=== PATIENT | female | born 1940 | race Caucasian/White ===

== ENCOUNTER → 2016-10-08 | Outpatient (CLI) | payer OTHER ==
[~2016-10-08] MED LIST: CLTP PO; CLX20 PO; DIOVAN PO; HYDR0.5T PO; MULT-506 PO; NIFE60TA57 PO; ORUVAIL PO
--- NOTE | 2016-10-08 12:34 | MAMMOGRAPHY REPORT ---
BILATERAL DIGITAL SCREENING MAMMOGRAM TOMOSYNTHESIS WITH CAD: 10/08/2016 CLINICAL HISTORY: Routine screening. Patient has no complaints. TECHNIQUE: Breast tomosynthesis in addition to standard 2D mammography was performed. Current study was also evaluated with a Computer Aided Detection (CAD) system. COMPARISON: Comparison is made to exams dated: 09/20/2015 mammogram, 07/28/2014 mammogram, 07/27/2013 m ammogram, 07/26/2012 mammogram, 07/07/2011 mammogram, and 07/05/2010 mammogram - [facility]. BREAST COMPOSITION: There are scattered areas of fibroglandular density in both breasts. FINDINGS: No suspicious masses, calcifications, or areas of architectural distortion are noted in ei ther breast. There has been no significant interval change compared to prior exams. The technologist noted a palpable lump in the patient's right chest/breast, far superior in a region not included on the mammogram. The patient reported to the technologist that her doctor is aware and she has had other similar lumps removed elsewhere. IMPRESSION: ACR BI-RADS CATEGORY 1: NEGATIVE There is no mammographic evidence of malignancy. A 1 year screening mammogram is recommended. Also r ecommend clinical follow-up for the right breast/chest lump as discussed above; as this area is too s uperior to include on the mammogram, if the lump is new or clinically suspicious, ultrasound could be performed for further evaluation. The patient will receive written notification of the results. Approximately 10% of breast cancers are not detected with mammography. A negative mammographic report should not delay biopsy if a clinically suggestive mass is present. Cha White M.D. /:10/08/2016 12:17:15 Hvac Service Tech: Dalia Calderon RT(R)(M), [facility] letter sent: Normal /2 BI-RADS Code: ACR BI-RADS Category 1: Negative
== END | disposition home or self-care (01) ==
LOC: C.MAMM 10:59
PROVIDERS: ATTEND Obstetrics & Gynecology
DX: Z12.31 Encounter for screening mammogram for malignant neoplasm of breast (principal)

== ENCOUNTER 2022-10-21 08:15 | Inpatient (IN) ==
--- NOTE | 2022-10-01 14:05 | PAT Medication Instructions ---
Medication Instructions Date of Service October 01, 2022 Home Medications cetirizine 10 mg tablet 10 mg PO QPM cholecalciferol (vitamin D3) 25 mcg (1,000 unit) capsule 25 mcg PO QAM cyanocobalamin (vitamin B-12) 500 mcg tablet 500 mcg PO QAM diazepam 5 mg tablet 5 mg PO .TAKE 1 TABLET 4 TIMES DAILY NEEDED. PRN Anxiety diclofenac sodium 1 % topical gel 1 ea topical .Apply to affected area BID as directed. PRN Pain hydroxychloroquine 200 mg tablet 400 mg PO QAM lorazepam 1 mg tablet 1 mg PO HS naproxen sodium 220 mg tablet 220 mg PO .TAKE 1 TABLET EVERY 12 HOURS NEEDED. PRN Pain nifedipine 90 mg tablet,extended release 24 hr 90 mg PO QAM verapamil 180 mg 24 hr capsule,extended release 180 mg PO HS Eye Vitamin Areds 1 tab PO BID acetaminophen 325 mg tablet (Tylenol) 650 mg PO BID Continue as directed diclofenac sodium 1 % topical gel 1 ea topical .Apply to affected area BID as directed. PRN Pain (do not use on surgical area after bathing prior to surgery) ASK your surgeon for instructions naproxen sodium 220 mg tablet 220 mg PO .TAKE 1 TABLET EVERY 12 HOURS NEEDED. PRN Pain STOP taking 2 weeks before surgery Eye Vitamin Areds 1 tab PO BID DO NOT take the morning of surgery cholecalciferol (vitamin D3) 25 mcg (1,000 unit) capsule 25 mcg PO QAM cyanocobalamin (vitamin B-12) 500 mcg tablet 500 mcg PO QAM Take morning of surgery With a small sip of water, OTHERWISE NOTHING TO EAT OR DRINK AFTER MIDNIGHT: nifedipine 90 mg tablet,extended release 24 hr 90 mg PO QAM diazepam 5 mg tablet 5 mg PO .TAKE 1 TABLET 4 TIMES DAILY NEEDED. PRN Anxiety (if needed) acetaminophen 325 mg tablet (Tylenol) 650 mg PO BID (if needed) Take evening before surgery verapamil 180 mg 24 hr capsule,extended release 180 mg PO HS lorazepam 1 mg tablet 1 mg PO HS cetirizine 10 mg tablet 10 mg PO QPM diazepam 5 mg tablet 5 mg PO .TAKE 1 TABLET 4 TIMES DAILY NEEDED. PRN Anxiety (if needed) acetaminophen 325 mg tablet (Tylenol) 650 mg PO BID (if needed) Other Notes CHECK WITH PRESCRIBER FOR INSTRUCTIONS: hydroxychloroquine 200 mg tablet 400 mg PO QAM If you have any questions please call us at [phone] or [phone] or [phone] or [phone]
--- NOTE | 2022-10-06 10:54 | Anesthesiology Consultation ---
Date of Service October 06, 2022 Assessment & Plan (1) Encounter for pre-operative examination: - awaiting upcoming surgeon ordered medical clearance, Sonja Encinas. - anesthesia complications: post-op orthostatic hypotension. - PONV: pre-treatment plan to anesthesiologist discretion. Chart Review Chart Review: Pending: Refer to Additional Notes / Consult section and Patient seen in Pre Admission Testing Teaching & Discussion Pre-Anesthesia Teaching/Discussion Notes: Instructed NPO after midnight before surgery, except medications with 15 cc of water. Medication instructions provided according to the PAT guidelines. History Surgery Operation Date: 10/21/22 07:45 Proposed Procedures p L4-S1 Decompression and Fusion, Spinal Cord Monitoring - Abdi Kim, Height/Weight Height: 5 ft 5.5 in Weight: 57.9 kg Allergies Allergy/AdvReac Type Severity Reaction Status Date / Time Penicillins Allergy Intermediate HIVES Verified 10/01/22 09:23 Sulfa (Sulfonamide AdvReac Intermediate ACUTE Verified 10/01/22 09:23 Antibiotics) ARTHRITIC FLARE-UP Medications Home Medications Medication Instructions Recorded Confirmed Last Taken cetirizine 10 mg tablet 10 mg PO QPM 11/18/19 10/01/22 Unknown cholecalciferol (vitamin D3) 25 25 mcg PO QAM 11/18/19 10/01/22 Unknown mcg (1,000 unit) capsule cyanocobalamin (vitamin B-12) 500 500 mcg PO QAM 11/18/19 10/01/22 Unknown mcg tablet diazepam 5 mg tablet 5 mg PO .TAKE 1 TABLET 4 TIMES 11/18/19 10/01/22 Unknown DAILY NEEDED. PRN Anxiety diclofenac sodium 1 % topical gel 1 ea topical .Apply to affected 11/18/19 0 10/01/22 Unknown area BID as directed. PRN Pain hydroxychloroquine 200 mg tablet 400 mg PO QAM 11/18/19 10/01/22 Unknown lorazepam 1 mg tablet 1 mg PO HS 11/18/19 10/01/22 Unknown naproxen sodium 220 mg tablet 220 mg PO .TAKE 1 TABLET EVERY 12 11/18/19 10/01/22 Unknown HOURS NEEDED. PRN Pain nifedipine 90 mg tablet,extended 90 mg PO QAM 11/18/19 10/01/22 Unknown release 24 hr verapamil 180 mg 24 hr 180 mg PO HS 08/29/21 10/01/22 Unknown capsule,extended release Eye Vitamin Areds 1 tab PO BID 10/01/22 10/01/22 Unknown acetaminophen 325 mg tablet 650 mg PO BID 10/01/22 10/01/22 Unknown (Tylenol) Past Medical History Medical History (Updated 10/06/22 @ 11:01 by Jimena Singh PA-C) Cardiomegaly Chronic right SI joint pain GERD (gastroesophageal reflux disease) controlled, stable per pt History of blood transfusion with bilat knee replacements Hypertension controlled, stable per pt Lumbar spondylosis Lymphoma dx'd approx 7 years ago. [facility] [place]. Macular degeneration Osteopenia Rheumatoid arthritis Spinal stenosis Patient denies h/o stroke, seizures, heart attack, heart failure, DM, or blood clots. Exercise / Class Metabolic Activity II 4-5 Yardwork/Stairs/Walk up hill (denies chest discomfort or shortness of breath with 1 FOS) Past Family History Family History Mother Colorectal cancer Father COPD (chronic obstructive pulmonary disease) Hypertension Sister [id number] deficiency Lewy body dementia COPD (chronic obstructive pulmonary disease) Family/Other Diabetes, Onset Age: 17 granddaughter Other No family history of adverse response to anesthesia Denies family history of Ovarian cancer Breast cancer Past Surgical History Surgical History (Updated 10/06/22 @ 10:59 by Jimena Singh PA-C) H/O adenoidectomy H/O dilation and curettage H/O foot surgery L H/O lymph node excision [facility] [place], R arm H/O oral surgery permanent front upper bridge and multiple implants History of appendectomy History of carpal tunnel release bilateral History of cataract surgery History of left knee replacement History of nasal surgery History of right knee joint replacement Hx of colonoscopy Hx of tonsillectomy S/P rotator cuff repair R Past Anesthesia History No Hx of Anesthesia Complications and No Family Hx of Anesthesia Complications History of PONV History of PONV (denies receiving scop patch) and Hx of Motion Sickness Social History Smoking Status: Former smoker Do You Dip or Chew Tobacco: No Smoking End Date: "years ago" Hx Alcohol Use: Yes Alcohol type: wine alcohol intake frequency: 0-2 drinks per day Hx Substance Use: No substance use type: does not use Review of Systems Patient denies chest pain, shortness of breath, dyspnea on exertion, snoring, witnessed apneas, fever, chills, cough, wheezing, or palpitations. Physical Exam Vital Signs Vitals BP 149/87 P 93 TEMP 97.8 SP02 94% on RA RESP 17 Physical Full cervical extension range of motion without pain TMD 3.5 finger breadths Mallampati Score 2 Dentition: permanent upper front bridge and multiple implants; denies chipped or loose teeth, caps/crowns, implants or bridges Lungs: normal respiratory effort. Good air movement, clear throughout to auscultation, no adventitious breath sounds Cardiac: regular rate and rhythm, no murmurs noted Carotid arteries: negative bruit bilat Lab Results Anesthesia Preop Results Results Anesthesia Widget: 2 WBC 5.50 K/ul (4.8-10.8) 10/06/22 Hgb 13.5 g/dl (12.0-16.0) 10/06/22 Hct 39.8 % (37.0-47.0) 10/06/22 Plt 147 K/uL (130-400) 10/06/22 Na 138 mmol/L (136-145) 10/06/22 K 4.0 mmol/L (3.5-5.1) 10/06/22 Cl 101 mmol/L (98-107) 10/06/22 CO2 28 mmol/L (21-32) 10/06/22 BUN 23 mg/dl (6-23) 10/06/22 Creat 0.98 mg/dl (0.6-1.2) 10/06/22 Glucose Level 97 mg/dl (70-99(Fasting)) 10/06/22 PT 10.3 Seconds (9.0-12.0) 10/06/22 PTT 27.6 Seconds (21.0-31.0) 10/06/22 INR 0.9 (0.9-1.1) 10/06/22 Urine Color Yellow 10/06/22 Urine Appearance Clear (Clear) 10/06/22 Urine pH 7.5 (4.5-7.5) 10/06/22 Urine Specific [place] 1.018 (1.000-1.030) 10/06/22 Urine Protein 1+ (Negative) H 10/06/22 Urine Glucose (UA) Negative (Negative) 10/06/22 Urine Ketones Trace (Negative) H 10/06/22 Urine Blood Negative (Negative) 10/06/22 Urine Nitrite Negative (Negative) 10/06/22 Urine Bilirubin Negative (Negative) 10/06/22 Urine Urobilinogen Negative (Negative) 10/06/22 Urine Leukocyte Esterase 1+ (Negative) H 10/06/22 Urine WBC (Auto) 1-5 /hpf (0-5) 10/06/22 Urine RBC (Auto) 0-4 /hpf (0-4) 10/06/22 Urine Hyaline Casts (Auto) 1-5 /lpf (0-5) 10/06/22 Urine Epithelial Cells (Auto) >30 /lpf (0-5) H 10/06/22 Urine Bacteria (Auto) Negative (Negative) 10/06/22 Blood Type B Positive 10/06/22 Antibody Screen NEGATIVE 10/06/22 Testing Electrocardiogram Date: 10/06/22 NSR, rate 90 bpm Right atrial enlargement Moderate voltage criteria for LVH, may be normal variant Nonspecific ST abnormality Chest X-Ray Date: 10/06/22 No lines and tubes are seen. Calcified aortic knob is seen. The lungs are clear. No evidence of pleural effusion or pneumothorax. Degenerative changes in the spine. IMPRESSION: No acute chest disease. Cervical Spine Date: 10/06/22 Lateral, flexion, extension views of the cervical spine were submitted for review. The cervical spine is visualized from C1 through the superior endplate of T1. No fractures within the cervical spine. Prevertebral soft tissues and the C1-C2 interval are intact. Minimal disc space narrowing at C4-C5. Moderate to severe facet degenerative changes throughout the cervical spine. The C2-C3 facets appear fused. There is 1.7 mm of anterolisthesis of C3 on C4. This progresses to 2.4 mm on the flexion views. Stable 1.7 mm of anterolisthesis of C6 on C7 throughout flexion and extension. IMPRESSION: 1. The C1-C2 interval is intact throughout flexion and extension. 2. There is 1.7 mm of anterolisthesis of C3 on C4. This progresses to 2.4 mm on the flexion views. COVID-19 Risk Screen Screening Information COVID-19 Screen Date: 10/06/22 Exposure 21 Days Family/Household +COVID Last 21 Days: No Exposure 10 Days Any COVID Exposure Last 10 Days: No Symptoms Last 10 Days Experienced COVID Sx Last 10 Days: No + COVID 0-90 Days COVID + in Last 0-90 Days: No
[~2022-10-21 08:15] MED LIST changes: +ACETAMINOPHEN 500 MG TAB PO SCH; +CLINDAMYCIN/D5W 900 MG/50 ML BAG IV SCH; -CLTP PO; -CLX20 PO; -DIOVAN PO; +GABAPENTIN 300 MG CAP PO SCH; -HYDR0.5T PO; +LR 15ML/HR IV SCH; +LR 500ML BOLUS IV SCH; -MULT-506 PO; -NIFE60TA57 PO; -ORUVAIL PO
[2022-10-21] MEDS ORDERED: DEXAMETHASONE SOD INJ 4 MG/ML VIAL ONE (09:07)
[2022-10-21] MEDS ORDERED: MIDAZOLAM HCL 1 MG/ML 2ML VIAL ONE (09:07)
[2022-10-21] MEDS ORDERED: LIDOCAINE 2% 2 ML VIAL/AMP(20MG/ML) INFIL ONE (09:07)
[2022-10-21] MEDS ORDERED: fentaNYL citrate PF 100 MCG/2 ML VIAL ONE (09:07)
[2022-10-21] MEDS ORDERED: ONDANSETRON INJ 2 MG/ML 2 ML VIAL ONE (09:07)
[2022-10-21] MEDS ORDERED: ROCURONIUM BROMIDE 10 MG/ML 5 ML VIAL IV ONE (09:07)
[2022-10-21] MEDS ORDERED: PROPOFOL IV EMULSION 10 MG/ML 20 ML VIAL IV ONE (09:07)
[2022-10-21] MEDS ORDERED: ATROPINE SULFATE 0.1 MG/ML 10ML SYR IV PRN (09:27)
[2022-10-21] MEDS ORDERED: ONDANSETRON INJ 2 MG/ML 2 ML VIAL IV PRN ×2 (09:27→14:23)
[2022-10-21] MEDS ORDERED: PROMETHAZINE HCL 6.25 MG in SODIUM CHLORIDE 0.9% 50 ML IV PRN (09:27)
--- NOTE | 2022-10-21 09:56 | History & Physical Bridge Note ---
Date of Service October 21, 2022 History & Physical Bridge Note I have examined the patient, reviewed the History & Physical and in the interval since the performance of the History & Physical I have noted the following changes of clinical significance: no changes noted
--- NOTE | 2022-10-21 09:57 | History & Physical Report ---
Date of Service October 21, 2022 Assessment & Plan (1) Neurogenic claudication due to lumbar spinal stenosis: Plan: L4-S1 decompression and fusion lumbar spine History of Present Illness Chief Complaint: Back and leg pain Primary Care Provider: MARGARET Paez This is a 82-year-old female who presents with chronic persistent back and leg pain after failing since course of nonoperative care she is here for surgical invention. Allergies Allergy/AdvReac Type Severity Reaction Status Date / Time cephalexin Allergy Intermediate nausea and Verified 10/21/22 08:55 vomiting Penicillins Allergy Intermediate HIVES Verified 10/21/22 08:55 lisinopril Allergy Unknown Unknown Verified 10/21/22 08:55 losartan Allergy Unknown Unknown Verified 10/21/22 08:55 propranolol Allergy Unknown Unknown Verified 10/21/22 08:55 codeine AdvReac Intermediate GI Verified 10/21/22 08:55 intolerance Sulfa (Sulfonamide AdvReac Intermediate ACUTE Verified 10/21/22 08:55 Antibiotics) ARTHRITIC FLARE-UP Home Medications Medication Instructions Recorded Confirmed Type cetirizine 10 mg tablet 10 mg PO QPM 11/18/19 10/21/22 History cholecalciferol (vitamin D3) 25 25 mcg PO QAM 11/18/19 10/21/22 History mcg (1,000 unit) capsule cyanocobalamin (vitamin B-12) 500 500 mcg PO QAM 11/18/19 10/21/22 History mcg tablet diazepam 5 mg tablet 5 mg PO .TAKE 1 TABLET 4 TIMES 11/18/19 10/21/22 History DAILY NEEDED. PRN Anxiety diclofenac sodium 1 % topical gel 1 ea topical .Apply to affected 11/18/19 10/21/22 History area BID as directed. PRN Pain hydroxychloroquine 200 mg tablet 400 mg PO QAM 11/18/19 10/21/22 History lorazepam 1 mg tablet 1 mg PO HS 11/18/19 10/21/22 History naproxen sodium 220 mg tablet 220 mg PO .TAKE 1 TABLET EVERY 12 11/18/19 10/21/22 History HOURS NEEDED. PRN Pain nifedipine 90 mg tablet,extended 90 mg PO QAM 11/18/19 10/21/22 History release 24 hr verapamil 180 mg 24 hr 180 mg PO HS 08/29/21 10/21/22 History capsule,extended release Eye Vitamin Areds 1 tab PO BID 10/01/22 10/21/22 History acetaminophen 325 mg tablet 650 mg PO BID 10/01/22 10/21/22 History (Tylenol) Past Med/Surg History Medical History (Updated 10/21/22 @ 09:57 by Abdi Kim, ) Cardiomegaly Chronic right SI joint pain GERD (gastroesophageal reflux disease) controlled, stable per pt History of blood transfusion with bilat knee replacements Hypertension controlled, stable per pt Lumbar spondylosis Lymphoma dx'd approx 7 years ago. [facility] [place]. Macular degeneration Osteopenia Rheumatoid arthritis Spinal stenosis Surgical History H/O adenoidectomy H/O dilation and curettage H/O foot surgery L H/O lymph node excision [facility] [place], R arm H/O oral surgery permanent front upper bridge and multiple implants History of appendectomy History of carpal tunnel release bilateral History of cataract surgery History of left knee replacement History of nasal surgery History of right knee joint replacement Hx of colonoscopy Hx of tonsillectomy S/P rotator cuff repair R Family History Mother Colorectal cancer Father COPD (chronic obstructive pulmonary disease) Hypertension Sister [id number] deficiency Lewy body dementia COPD (chronic obstructive pulmonary disease) Family/Other Diabetes, Onset Age: 17 granddaughter Other No family history of adverse response to anesthesia Denies family history of Ovarian cancer Breast cancer Social History Smoking Status: Former smoker Tobacco Type: Cigarettes Smoking End Date: "years ago"; Second Hand Exposure: No; Do You Dip or Chew Tobacco: No; Tobacco Cessation Education Requested by Patient: No Hx Alcohol Use: Yes Alcohol type: wine Hx Substance Use: No Preferred Language: Slovenian Communication Ability: Effective School Supervisor Required: No Beliefs That Will Affect Care: None marital status: Single Current Living Situation: Alone current occupational status: retired Feels Safe at Home: Yes Safety Concerns: Feels Safe At This Time Assistive Devices: Glasses Physical Exam Physical Exam: Patient is alert and oriented Heart regular rhythm Lungs clear Results & Data Results & Data Vital Signs (Past 12 Hours) Vital Signs Temp Pulse Resp BP Pulse Ox O2 Del Method 10/21/22 08:58 36.7 C 75 20 149/83 H 97 Room Air
[2022-10-21] MEDS ORDERED: ceFAZolin 330 MG/ML 1 GM VIAL ONE (10:14)
[2022-10-21] MEDS ORDERED: BUPIVACAINE/EPINEPHRINE 0.25% 1:200,000 30 ML VIAL ONE (10:14)
[2022-10-21] MEDS ORDERED: KETAMINE 50 MG/5 ML SYRINGE ONE (10:51)
[2022-10-21] MEDS ORDERED: ePHEDrine sulfate 50 MG/ML AMP ONE (11:22)
[2022-10-21] MEDS ORDERED: FLOSEAL HEMOSTATIC MATRIX 10ML TOP ONE (11:24)
[2022-10-21] MEDS ORDERED: SUGAMMADEX SODIUM 200 MG/2 ML VIAL IV ONE (12:25)
--- NOTE | 2022-10-21 12:28 | Operative Report ---
Post Operative Report Pre & Post Diagnosis Operation Date: 10/21/22 10:05 Pre-Op Diagnosis: Neurogenic Claudication due to Lumbar Spinal Stenosis Post-Op Diagnosis: Neurogenic Claudication due to Lumbar Spinal Stenosis I identified the patient and participated in the time-out.: Yes Procedure Operation Date: 10/21/22 10:05 Actual Procedures #1 lumbar decompression bilaterally facetectomies and foraminotomies L3-L4, L4- 5 and L5-S1. #2 posterior spinal fusion L4-L5 L5-S1. #3 placement posterior instrumentation L4-5 L5-S1. #4 interbody fusion L4-L5 L5-S1. #5 placement Spira limb by 26 mm at L4-5 and 12 x 26 mm at L5-S1. #6 placement locally harvested morselized autograft posterior #7 placement infuse collagen sponge, master graft in the posterior gutters and I factor interbody space. Surgeon Abdi Kim DO Rehabilitation Counsellor Rosibel Hayes Estimated Blood Loss 50 Findings Consistent with Post-Op Diagnosis Specimens none Indications This is a 82-year-old female presents above-mentioned diagnosis and failing since course of nonoperative care is here for surgical invention. Description of Procedure Patient was met with identified informed consent obtained. Patient was then taken to the operative suite underwent ablation placed in a prone position on the Manpreet table top Stuart frame. All bony promises well-padded eyes inspected to ensure no external pressure placed upon the. This point the lumbar spine was prepped and draped in a sterile fashion. Sharp dissection with the assistance of Bovie cautery to form down to and exposing the lamina and transverse processes of L4-5 and sacral ala bilaterally. From caudal cephalad fashion complete laminectomy L5 L4 partial laminectomy L3 was performed including bilaterally facetectomies and foraminotomies addressing severe spinal stenosis. Pedicle screws were then placed in L4-L5 and S1 levels bilaterally with assistance of fluoroscopy in the process oralia placed. By way of transforaminal approach and right complete discectomy of L4-5 was performed endplates curetted to subcortical mean bone and the 12 x 26 mm Spira cage with I factor tapped in position. Then proceeded L4-[address] the transforaminal approach on the right complete discectomy was performed endplates curetted to subcortical mean bone and 11 x 26 mm Spira cage with I factor tapped position. The rods then locked in final position bilaterally. The transverse processes of L4-5 and the sacral ala bilaterally. To subcortical bleeding bone. Infuse collagen sponge mass graft local autograft was placed in the posterior gutters. 15 round AMAN inserted. The incision was then closed with 1 Vicryl the fascia 2-0 Vicryl subcutaneously and 4 Monocryl for final skin closure. Steri- Strip sterile dressing placed. Patient awakened taken to PACU in stable condition. Please note Rosibel Hayes was present at the entire procedure and all the patient positioning complex portion of the surgery and final skin closure. I attest to the content of the Intraoperative Record and any orders documented therein. Any exceptions are noted below.
[2022-10-21] MEDS: HYDROmorphone INJ 1 MG/ML SYRINGE IV PRN ×4 (12:51→13:17)
--- NOTE | 2022-10-21 12:58 | Fluoroscopy Report ---
FL lumbar spine 2-3V CLINICAL HISTORY: L4-S1 DECOMP/FUSION COMPARISON STUDY: Lumbar spine MRI 09/16/2022. FLUOROSCOPY TIME: 36 seconds FLUOROSCOPY IMAGES: 2 Ka,r: 13.3 mGy FINDINGS: Posterior decompression and fusion from L4 through S1 with pedicle screws and rods. The blane dware appears intact. Disc spacers are placed. IMPRESSION: Fluoroscopic assistance as above. ACT 112: Negative or not required by law. Electronically signed by: Chavo Downing M.D. 10/21/2022 12:56 PM
[2022-10-21] MEDS ORDERED: ONDANSETRON 4 MG OD TAB PO PRN (14:23)
[2022-10-21] MEDS ORDERED: LORazepam 0.5 MG TAB PO PRN (14:23)
[2022-10-21] MEDS ORDERED: SOD PHOSPHATE/SOD BIPHOSPHATE ENEMA 132 ML BTL PR PRN (14:23)
[2022-10-21] MEDS ORDERED: hydrOXYzine HCl 25 MG TAB PO PRN (14:23)
[2022-10-21] MEDS ORDERED: diazePAM 5 MG TABLET PO PRN (14:23)
[2022-10-21] MEDS ORDERED: METOCLOPRAMIDE HCL INJ 5 MG/ML 2 ML VIAL IV PRN (14:23)
[2022-10-21] MEDS ORDERED: ACETAMINOPHEN 1,000 MG/100 ML VIAL IV PRN (14:23)
[2022-10-21] MEDS ORDERED: DO NOT ADMINISTER FLU VACCINE PRN (14:23)
[2022-10-21] MEDS ORDERED: DO NOT ADMINISTER PNEUMOCOCCAL VACCINE PRN (14:23)
[2022-10-21] MEDS ORDERED: ACETAMINOPHEN 500 MG TAB PO PRN (14:23)
[2022-10-21] MEDS ORDERED: LORazepam 2 MG/1 ML VIAL IV PRN (14:23)
[2022-10-21] MEDS ORDERED: HYDROmorphone INJ 0.5 MG/0.5 ML SYR IV PRN (14:23)
[2022-10-21] MEDS ORDERED: FAMOTIDINE 20 MG TAB PO PRN (14:23)
[2022-10-21] MEDS ORDERED: ALUMINUM/MAGNESIUM SUSP 30 ML UDC PO PRN (14:23)
[2022-10-21] MEDS ORDERED: traMADol HCL 50 MG TABLET PO PRN (14:23)
[2022-10-21] MEDS ORDERED: NALOXONE HCL 0.4 MG/1 ML VIAL/CARP IV PRN (14:23)
[2022-10-21] MEDS ORDERED: MAGNESIUM HYDROXIDE SUSP 30 ML UDC PO PRN (14:23)
[2022-10-21] MEDS ORDERED: diphenhydrAMINE Capsule 25 MG CAP PO PRN (14:23)
[2022-10-21] MEDS ORDERED: bisacodyL 10 MG SUPP PR PRN (14:23)
[2022-10-21] MEDS ORDERED: PROMETHAZINE HCL 12.5 MG in SODIUM CHLORIDE 0.9% 50 ML IV PRN (14:23)
[2022-10-21] MEDS ORDERED: HYDROmorphone INJ 1 MG/ML SYRINGE IV PRN (14:23)
[2022-10-21] MEDS: LACTATED RINGER'S 1,000 ML IV SCH ×2 (14:30→19:35)
--- NOTE | 2022-10-21 14:36 | Anesthesiology Progress Note ---
Date of Service October 21, 2022 Anesthesia Post Procedure Vital Signs Vital Signs: Temp Pulse Resp BP Pulse Ox O2 Del Method O2 Flow Rate 10/21/22 14:00 79 16 136/76 95 Room Air 10/21/22 13:45 79 14 139/71 95 Room Air 10/21/22 13:20 78 16 126/66 92 Room Air 10/21/22 13:10 76 14 104/74 93 Room Air 10/21/22 13:30 36.5 C 74 12 120/76 97 Room Air 10/21/22 13:00 71 20 126/72 100 Oxymask 4 10/21/22 12:50 68 12 115/65 100 Oxymask 4 10/21/22 12:38 36.2 C L 73 19 119/68 100 Oxymask 6 10/21/22 08:58 36.7 C 75 20 149/83 H 97 Room Air Pain Intensity Right Lower Back: Pain Intensity: 6 Back: Pain Intensity: 3 Transfer of Care Handoff Completed per policy Notes Mental Status: alert / awake / arousable Patient Amnestic to Procedure: Yes Nausea / Vomiting: adequately controlled Pain: adequately controlled Airway Patency, RR, SpO2: stable & adequate BP & HR: stable & adequate Hydration State: stable & adequate Anesthetic Complications: no major complications apparent
[2022-10-21] MEDS: CLINDAMYCIN/D5W 600 MG/50 ML BAG IV SCH (17:18)
[2022-10-21] MEDS: DOCUSATE SODIUM/SENNA 50/8.6MG TAB PO SCH (19:52)
[2022-10-21] MEDS: CETIRIZINE HCL 10 MG TABLET PO SCH (19:53)
[2022-10-21] MEDS: VERAPAMIL HCL 180 MG TABCR PO SCH (19:53)
[2022-10-21] MEDS: LORazepam 1 MG TAB PO SCH (23:20)
[2022-10-21] MEDS: oxyCODONE HCL IR 5 MG TAB (IMMEDIATE RELEASE) PO PRN (23:20)
[2022-10-22] MEDS: CLINDAMYCIN/D5W 600 MG/50 ML BAG IV SCH (03:10)
[2022-10-22] MEDS: oxyCODONE HCL IR 5 MG TAB (IMMEDIATE RELEASE) PO PRN ×5 (05:50→21:38)
[2022-10-22] MEDS: POLYETHYLENE (MIRALAX) 17 GM PACK PO SCH ×4 (05:52→23:03)
[2022-10-22 07:33] LABS: BUN Creatinine Ratio 24.2 (10-20); Calcium 8.9 mg/dl (8.6-10.3); Creatinine Clr Calc Pharmacy 41.6 ml/min; Est GFR (African American) 65.1 ml/min; Est GFR (Non-African American) 56.2 ml/min; Potassium 4.2 mmol/L (3.5-5.1)
[2022-10-22 07:47] LABS: Basophils # (auto) 0.01 K/uL (0-0.2); Basophils % (auto) 0.1 %; Hematocrit (blood only) 27.6 % (37.0-47.0); Hemoglobin 9.5 g/dl (12.0-16.0); Immature Granulocytes # (auto) 0.04 K/uL (0.01-0.20); Immature Granulocytes % (auto) 0.3 %; Lymphocytes # (auto) 0.76 K/uL (1.2-3.4); Lymphocytes % (auto) 5.9 %; Mean Corpuscular Hemoglobin 31.8 pg (25.0-34.0); Mean Corpuscular Hgb Conc 34.4 g/dL (32.0-36.0); Mean Corpuscular Volume 92.3 fL (80.0-100.0); Mean Platelet Volume 10.5 fL (9.4-12.4); Monocytes # (auto) 0.82 K/uL (0.11-0.59); Monocytes % (auto) 6.4 %; Neutrophils # (auto) 11.15 K/uL (1.40-6.50); Neutrophils % (auto) 87.3 %; Platelet Count 104 K/uL (130-400); Platelet Estimate Decreased (Normal); RDW Coefficient of Variation 12.1 % (11.5-14.5); Red Blood Count 2.99 M/uL (4.20-5.40); White Blood Count 12.78 K/ul (4.8-10.8)
--- NOTE | 2022-10-22 08:56 | Orthopedic Progress Note ---
Date of Service October 22, 2022 Assessment & Plan (1) Neurogenic claudication due to lumbar spinal stenosis: Plan: Paige is postoperative day 1 status post TLIF L4-5 and L5-S1 by Dr. Kim. She will start physical therapy today. DEMETRIUS Liriano after physical therapy. Maintain AMAN drain. Continue with aggressive bowel regimen. Continue with pain control. DVT prophylaxis is in the form teds and SCDs. Anticipate discharge home latter half of the week. Admission and Anticipated Discharge Date Admission Date: October 21, 2022 Subjective Paige is postoperative day 1 status post TLIF L4-5 and L5-S1 by Dr. Kim. She had an uneventful evening. Back pain is controlled. Leg symptoms improved. AMAN drain output last shift was 50 cc. Lab values pending this morning. Review of Systems Review of Systems: All systems reviewed & are unremarkable except as noted in HPI & below Physical Exam Physical Exam: She is lying in bed in no acute distress Alert and oriented x3 Lumbar dressing is reinforced but clean and dry. Functioning AMAN drain noted Strength is intact bilateral lower Calf soft nontender bilateral lower extremity ION hose intact bilateral lower extremities Results & Data Vital Signs (Past 12 Hours) Vital Signs Temp Pulse Resp BP BP Pulse Ox O2 Del Method 10/22/22 07:18 36.6 C 73 14 150/73 H 95 Room Air 10/22/22 03:12 36.5 C 80 16 153/74 H 95 Room Air 10/21/22 22:36 36.8 C 83 16 129/68 95 Room Air
[2022-10-22] MEDS ORDERED: NIFEDIPINE 90 MG PO SCH (09:00)
[2022-10-22] MEDS ORDERED: SODIUM CHLORIDE 0.9% 500 ML IV SCH (09:00)
[2022-10-22] MEDS ORDERED: CHOLECALCIFEROL 1,000 UNITS 25 MCG TAB PO SCH (09:00)
--- NOTE | 2022-10-22 09:01 | Consultation ---
Date of Consultation October 22, 2022 Assessment & Plan (1) Neurogenic claudication due to lumbar spinal stenosis: (2) Acute blood loss as cause of postoperative anemia: (3) Hypertension: (4) Rheumatoid arthritis: Plan This is a 82-year-old female who has a significant past medical history of HTN, rheumatoid arthritis, left and right atrial dilatation, allergic rhinitis and history of B-cell lymphoma who presents for elective lumbar procedure by Dr. Kim. Neurogenic claudication due to lumbar spinal stenosis Status post lumbar decompression fusion L4-S1, POD #[address] Kim EBL 50 mL, AMAN drain 475 mL Pain/wound management per orthopedics Activity and therapy as prescribed orthopedic Encourage incentive spirometry Acute blood loss as cause of postoperative anemia Preop hemoglobin 13, POD #1 hemoglobin 9.5 Likely dilutional component as well Monitor hemoglobin, transfuse if hemoglobin less than 7 HTN BP stable Continue nifedipine and verapamil This regimen was confirmed with patient Rheumatoid arthritis On Plaquenil as OP currently on hold Elevated fasting blood glucose Glucose 171 this morning, obtain A1c Patient is receiving dexamethasone Hyponatremia sodium 131, correct 133 for glucose previously normal give nss 125cc/hr x 500ml pt appears dry, not on diuretic, no nausea repeat in a.m. Thrombocytopenia plt 104, pre op plt ct was normal follow no s/sx of bleeding Hx of b cell lymphoma follows gisella for maintenance Alcohol use pt drinks 1-2 daily awss ordered, monitor DVT prophylaxis: SCDs Full code PCP. [facility] primary care in [facility] Patient was seen and examined in collaboration with Dr. Zavala, please see addendum Thank you for this consultation. We will follow the patient with you during their hospital stay. You can reach a member of the [facility] Hospitalist Team 27/10 via hospitalist role on tiger text. Supervising Physician Co-Signing Physician Notes Pt seen and examined by me, care coordinated w/ Valente Puckett PA-C, pls refer to her note above for further detail. Pt is an 82 yo F with HTN, rheumatoid arthritis, left and right atrial dilatation, allergic rhinitis and history of B-cell lymphoma who is s/p lumbar spine surgery by Dr. Kim yesterday. Currently patient is working with physical therapy, using a walker. She still has a Liriano catheter placed in. She has no concerns and pain seems well contr olled. She is awake alert oriented answering appropriately. Lungs are clear to auscultation. Heart sounds regular. Abdomen soft nontender nondistended. She reports passing flatus, no BM yet. She is currently standing with a walker, denies any dizziness or lightheadedness. Postop hemoglobin down, will continue to closely monitor. Otherwise plan as above. MD Lucas History of Present Illness Requesting Physician: Dr. Kim Reason for Consultation: Postop medical management Attending Physician: Abdi Kim DO History of Present Illness This is a 82-year-old female who has a significant past medical history of HTN, rheumatoid arthritis, left and right atrial dilatation, allergic rhinitis and history of B-cell lymphoma who presents for elective lumbar procedure by Dr. Kim. She tolerated the procedure well. She currently has incisional discomfort as well as where the dressing is. Currently she denies any lower extremity pain. She is very tired as she did not sleep all night. She denies fever, chills, sweats, lightheadedness, dizziness, chest pain, shortness breath, nausea, vomiting, abdominal pain. She currently has Liriano catheter in place. She follows with primary care down in [facility] at [facility] facility. She does have history of hypertension which is controlled with the nifedipine and verapamil. This was confirmed. She also has history of RA which is controlled with Plaquenil. She does have remote history of B-cell lymphoma and is followed annually at [place]. She does drink at least 1 drink of alcohol daily varying beverages. She denies any history of withdrawal. Allergies Allergy/AdvReac Type Severity Reaction Status Date / Time cephalexin Allergy Intermediate nausea and Verified 10/21/22 08:55 vomiting Penicillins Allergy Intermediate HIVES Verified 10/21/22 08:55 lisinopril Allergy Unknown Unknown Verified 10/21/22 08:55 losartan Allergy Unknown Unknown Verified 10/21/22 08:55 propranolol Allergy Unknown Unknown Verified 10/21/22 08:55 codeine AdvReac Intermediate GI Verified 10/21/22 08:55 intolerance Sulfa (Sulfonamide AdvReac Intermediate ACUTE Verified 10/21/22 08:55 Antibiotics) ARTHRITIC FLARE-UP Home Medications Medication Instructions Recorded Confirmed Type cetirizine 10 mg tablet 10 mg PO QPM 11/18/19 10/21/22 History cholecalciferol (vitamin D3) 25 25 mcg PO QAM 11/18/19 10/21/22 History mcg (1,000 unit) capsule cyanocobalamin (vitamin B-12) 500 500 mcg PO QAM 11/18/19 10/21/22 History mcg tablet diazepam 5 mg tablet 5 mg PO .TAKE 1 TABLET 4 TIMES 11/18/19 10/21/22 History DAILY NEEDED. PRN Anxiety diclofenac sodium 1 % topical gel 1 ea topical .Apply to affected 11/18/19 10/21/22 History area BID as directed. PRN Pain hydroxychloroquine 200 mg tablet 400 mg PO QAM 11/18/19 10/21/22 History lorazepam 1 mg tablet 1 mg PO HS 11/18/19 10/21/22 History naproxen sodium 220 mg tablet 220 mg PO .TAKE 1 TABLET EVERY 12 11/18/19 10/21/22 History HOURS NEEDED. PRN Pain nifedipine 90 mg tablet,extended 90 mg PO QAM 11/18/19 10/21/22 History release 24 hr verapamil 180 mg 24 hr 180 mg PO HS 08/29/21 10/21/22 History capsule,extended release Eye Vitamin Areds 1 tab PO BID 10/01/22 10/21/22 History acetaminophen 325 mg tablet 650 mg PO BID 10/01/22 10/21/22 History (Tylenol) Patient History Medical History Cardiomegaly Chronic right SI joint pain GERD (gastroesophageal reflux disease) controlled, stable per pt History of blood transfusion with bilat knee replacements Hypertension controlled, stable per pt Lumbar spondylosis Lymphoma dx'd approx 7 years ago. [facility] monitors. Macular degeneration Osteopenia Rheumatoid arthritis Spinal stenosis Surgical History H/O adenoidectomy H/O dilation and curettage H/O foot surgery L H/O lymph node excision [facility], R arm H/O oral surgery permanent front upper bridge and multiple implants History of appendectomy History of carpal tunnel release bilateral History of cataract surgery History of left knee replacement History of nasal surgery History of right knee joint replacement Hx of colonoscopy Hx of tonsillectomy S/P rotator cuff repair R Family History Mother Colorectal cancer Father COPD (chronic obstructive pulmonary disease) Hypertension Sister [id number] deficiency Lewy body dementia COPD (chronic obstructive pulmonary disease) Family/Other Diabetes, Onset Age: 17 granddaughter Other No family history of adverse response to anesthesia Denies family history of Ovarian cancer Breast cancer Social History Smoking Status: Former smoker Tobacco Type: Cigarettes Smoking End Date: "years ago"; Second Hand Exposure: No; Do You Dip or Chew Tobacco: No; Tobacco Cessation Education Requested by Patient: No Hx Alcohol Use: Yes Alcohol type: wine Hx Substance Use: No Preferred Language: Yemeni Communication Ability: Effective Garment Tag Stringer Required: No Beliefs That Will Affect Care: Roman Catholic marital status: Single Current Living Situation: Alone current occupational status: retired Feels Safe at Home: Yes Safety Concerns: Feels Safe At This Time Assistive Devices: Walker Review of Systems Review of Systems: All systems reviewed & are unremarkable except as noted in HPI & below Physical Exam Physical Exam: Constitutional: WD/WN, vitals as above, NAD, sitting up in bed, pleasant, conversing easily Head: Normocephalic, Atraumatic Eyes: PERRL, conjunctivae normal, anicteric sclerae ENMT: external ear and nose normal, oropharynx normal Neck: trachea midline, no thyromegaly normal visual inspection Respiratory: normal respiratory effort, lungs clear to auscultation, no wheeze, rales, rhonchi. Normal insp/exp effort, no accessory muscle use Cardiovascular: RRR, no murmur, no edema Vessels: no JVD or carotid bruit Chest: normal inspection of chest Abdomen: normal bowel sounds, soft, nontender, no hepatosplenomegaly Musculoskeletal: no cyanosis or clubbing, extremities motor strength 5/5, lumbar dressing CDI, AMAN drain with serosanguineous drainage Skin: no rashes, warm and dry normal turgor Neurologic: PERRL, EOMI, accommodation nl, no face palsy, no dysarthria CN's II-XI intact bilaterally and moves all extremities Psychiatric: A+Ox3, euthymic affect Lymphatic: no cervical or axillary lymphadenopathy : Liriano cath draining clear yellow urine Results & Data Vital Signs (Past 12 Hours) Vital Signs Temp Pulse Resp BP BP Pulse Ox O2 Del Method 10/22/22 07:18 36.6 C 73 14 150/73 H 95 Room Air 10/22/22 03:12 36.5 C 80 16 153/74 H 95 Room Air 10/21/22 22:36 36.8 C 83 16 129/68 95 Room Air Laboratory Results Short CBC 10/22/22 Range/Units 06:35 WBC 12.78 H (4.8-10.8) K/ul Hgb 9.5 L (12.0-16.0) g/dl Hct 27.6 L (37.0-47.0) % Plt Count 104 L (130-400) K/uL BMP 10/22/22 06:35 Sodium 131 L Potassium 4.2 Chloride 98 Carbon Dioxide 27 BUN 23 Creatinine 0.95 Glucose 171 H Calcium 8.9 Diagnostic Findings Chest X-Ray 10/06/22 07:55 XR chest Pre-admission PA/Lat CLINICAL HISTORY: pat TECHNIQUE: 2 views of the chest were obtained. Comparison: Comparison is made to chest radiograph 01/08/2019 FINDINGS: No lines and tubes are seen. Calcified aortic knob is seen. The lungs are clear. No evidence of pleural effusion or pneumothorax. Degenerative changes in the spine. IMPRESSION: No acute chest disease. ACT 112: Negative or not required by law. Electronically signed by: Celso Coto M.D. 10/06/2022 11:48 AM Cervical Spine X-Ray 10/06/22 11:14 XR cervical spine 2 or 3V CLINICAL HISTORY: rheumatoid arthritis. Preop. COMPARISON STUDY: None. FINDINGS: Lateral, flexion, extension views of the cervical spine were submitted for review. The cervical spine is visualized from C1 through the superior endplate of T1. No fractures within the cervical spine. Prevertebral soft tissues and the C1-C2 interval are intact. Minimal disc space narrowing at C4- C5. Moderate to severe facet degenerative changes throughout the cervical spine. The C2-C3 facets appear fused. There is 1.7 mm of anterolisthesis of C3 on C4. This progresses to 2.4 mm on the flexion views. Stable 1.7 mm of anterolisthesis of C6 on C7 throughout flexion and extension. IMPRESSION: 1. The C1-C2 interval is intact throughout flexion and extension. 2. There is 1.7 mm of anterolisthesis of C3 on C4. This progresses to 2.4 mm on the flexion views. ACT 112: Negative or not required by law. Electronically signed by: Chavo Downing M.D. 10/06/2022 11:52 AM Lumbar Spine X-Ray 10/21/22 00:00 FL lumbar spine 2-3V CLINICAL HISTORY: L4-S1 DECOMP/FUSION COMPARISON STUDY: Lumbar spine MRI 09/16/2022. FLUOROSCOPY TIME: 36 seconds FLUOROSCOPY IMAGES: 2 Ka,r: 13.3 mGy FINDINGS: Posterior decompression and fusion from L4 through S1 with pedicle screws and rods. The hardware appears intact. Disc spacers are placed. IMPRESSION: Fluoroscopic assistance as above. ACT 112: Negative or not required by law. Electronically signed by: Chavo Downing M.D. 10/21/2022 12:56 PM Preoperative chest x-ray done 10/06 revealed no acute chest disease. Medications Administered Current Inpatient Medications Acetaminophen (Acetaminophen 500 Mg Tab) 1,000 mg PO Q8H PRN PRN Reason: MILD Pain Scale 1,2,3 & Pre PT Stop: 11/20/22 14:22 Al Hydrox/Mg Hydrox/Simethicone (Aluminum/Magnesium Susp 30 Ml Udc) 30 ml PO Q6H PRN PRN Reason: Dyspepsia Stop: 11/20/22 14:22 Bisacodyl (Bisacodyl 10 Mg Supp) 10 mg [place] DAILY PRN PRN Reason: Constipation Stop: 11/20/22 14:22 Cetirizine HCl (Cetirizine Hcl 10 Mg Tablet) 10 mg PO QPM SHEYLA Stop: 11/20/22 20:59 Last Admin: 10/21/22 19:53 Dose: 10 mg Cyanocobalamin (Cyanocobalamin (B-12) 500 Mcg Tablet) 500 mcg PO QAM SHEYLA Stop: 11/21/22 08:59 Diazepam (Diazepam 5 Mg Tablet) 5 mg PO .TAKE 1 TABLET 4 TIMES DAILY NEEDED. PRN PRN Reason: Anxiety Stop: 11/20/22 14:22 Diphenhydramine HCl (Diphenhydramine Capsule 25 Mg Cap) 25 mg PO Q6H PRN PRN Reason: Allergic Rhinitis/Insomnia Stop: 11/20/22 14:22 Famotidine (Famotidine 20 Mg Tab) 20 mg PO Q12H PRN PRN Reason: Dyspepsia Stop: 11/20/22 14:22 Hydromorphone HCl (Hydromorphone Inj 0.5 Mg/0.5 Ml Syr) 0.5 mg IV Q3H PRN PRN Reason: MODERATE Pain (Scale 4,5,6) & Pre PT Stop: 11/04/22 14:22 Hydromorphone HCl (Hydromorphone Inj 1 Mg/Ml Syringe) 1 mg IV Q3H PRN PRN Reason: SEVERE Pain (Scale 7,8,9,10) Stop: 11/04/22 14:22 Hydroxychloroquine Sulfate (Hydroxychloroquine Sulfate 200 Mg Tab) 400 mg PO QAM [facility] Stop: 11/21/22 08:59 Hydroxyzine HCl (Hydroxyzine Hcl 25 Mg Tab) 25 mg PO Q8H PRN PRN Reason: Anxiety Stop: 11/20/22 14:22 Promethazine HCl 12.5 mg/ (Sodium Chloride) 50.5 mls @ 202 mls/hr IV Q6H PRN PRN Reason: Nausea &/or Vomiting Stop: 11/20/22 14:22 Acetaminophen (Ofirmev) 1,000 mg in 100 mls @ 400 mls/hr IV Q8H PRN PRN Reason: Pain Rating 1-3 & Pre PT Stop: 10/22/22 14:23 Last Infusion: 10/21/22 20:03 Dose: Infused Dexamethasone 6 mg/ Syringe 1.5 mls @ 1 mls/min IV DAILY [facility] Stop: 10/24/22 09:02 Influenza Virus Vaccine Quadrival (Do Not Administer Flu Vaccine) 1 each N/A PRN PRN PRN Reason: Notification Stop: 11/20/22 14:22 Lorazepam (Lorazepam 1 Mg Tab) 1 mg PO HS [facility] Stop: 11/20/22 20:59 Last Admin: 10/21/22 23:20 Dose: 1 mg Lorazepam (Lorazepam 0.5 Mg Tab) 0.5 mg PO Q8H PRN PRN Reason: Sedation/Anxiety Stop: 11/20/22 14:22 Lorazepam (Lorazepam 2 Mg/1 Ml Vial) 0.5 mg IV Q8H PRN PRN Reason: Sedation/Anxiety Stop: 11/20/22 14:22 Magnesium Hydroxide (Magnesium Hydroxide Susp 30 Ml Udc) 30 ml PO Q24H PRN PRN Reason: Constipation Stop: 11/20/22 14:22 Metoclopramide HCl (Metoclopramide Hcl Inj 5 Mg/Ml 2 Ml Vial) 10 mg IV Q6H PRN PRN Reason: Nausea &/or Vomiting Stop: 11/20/22 14:22 Naloxone HCl (Naloxone Hcl 0.4 Mg/1 Ml Vial/Carp) 0.1 mg IV Q5M PRN PRN Reason: Oversedation/Resp depression Stop: 11/20/22 14:22 Nifedipine (Nifedipine Extended Rel 30 Mg Tabcr) 90 mg PO QAM SHEYLA Stop: 11/21/22 08:59 Ondansetron HCl (Ondansetron Inj 2 Mg/Ml 2 Ml Vial) 4 mg IV Q6H PRN PRN Reason: Nausea &/or Vomiting Stop: 11/20/22 14:22 Ondansetron HCl (Ondansetron 4 Mg Od Tab) 4 mg PO Q6H PRN PRN Reason: Nausea Stop: 11/20/22 14:22 Oxycodone HCl (Oxycodone Hcl Ir 5 Mg Tab (Immediate Release)) 5 - 10 mg PO Q4H PRN PRN Reason: Pain & Pre PT Stop: 11/04/22 14:22 Last Admin: 10/22/22 05:50 Dose: 10 mg Pneumococcal Polyvalent Vaccine (Do Not Administer Pneumococcal Vaccine) 1 each N/A PRN PRN PRN Reason: Notification Stop: 11/20/22 14:22 Polyethylene Glycol (Polyethylene (Miralax) 17 Gm Pack) 17 gm PO Q6 SHEYLA Stop: 11/21/22 05:59 Last Admin: 10/22/22 05:52 Dose: 17 gm Senna/Docusate Sodium (Docusate Sodium/Senna 50/8.6mg Tab) 2 tab PO HS SHEYLA Stop: 11/20/22 20:59 Last Admin: 10/21/22 19:52 Dose: 2 tab Sodium Biphosphate/Sodium Phosphate (Sod Phosphate/Sod Biphosphate Enema 132 Ml Btl) 132 ml [place] ONE PRN PRN Reason: Constipation Stop: 11/20/22 14:22 Tramadol HCl (Tramadol Hcl 50 Mg Tablet) 50 - 100 mg PO Q4H PRN PRN Reason: Moderate-Severe pain & Pre PT Stop: 11/20/22 14:22 Verapamil HCl (Verapamil Hcl 180 Mg Tabcr) 180 mg PO [facility] Stop: 11/20/22 20:59 Last Admin: 10/21/22 19:53 Dose: 180 mg Vitamin D (Cholecalciferol 1,000 Units 25 Mcg Tab) [facility] Stop: 11/21/22 08:59 ECG Additional Comments: Normal sinus rhythm, right atrial enlargement, 90 bpm, QTc 445 MS, when compared to EKG of January, there was no change
[2022-10-22] MEDS: HYDROXYCHLOROQUINE SULFATE 200 MG TAB PO SCH (09:19)
[2022-10-22] MEDS: dexAMETHasone 6 MG in SYRINGE 0 ML IV SCH (09:20)
[2022-10-22] MEDS: CYANOCOBALAMIN (B-12) 500 MCG TABLET PO SCH (09:20)
[2022-10-22] MEDS: NIFEdipine EXTENDED REL 30 MG TABCR PO SCH (09:21)
[2022-10-22] MEDS: CHOLECALCIFEROL 5,000 UNITS 125 MCG TAB PO SCH (10:02)
[2022-10-22 12:54] LABS: Estimated Average Glucose 100 mg/dl; Hemoglobin A1C 5.1 % (4.5-5.6)
[2022-10-22] MEDS: LORazepam 1 MG TAB PO SCH ×2 (20:11→21:40)
[2022-10-22] MEDS: CETIRIZINE HCL 10 MG TABLET PO SCH (20:11)
[2022-10-22] MEDS: VERAPAMIL HCL 180 MG TABCR PO SCH (20:11)
[2022-10-22] MEDS: DOCUSATE SODIUM/SENNA 50/8.6MG TAB PO SCH (20:11)
[2022-10-23] MEDS: oxyCODONE HCL IR 5 MG TAB (IMMEDIATE RELEASE) PO PRN ×4 (05:04→19:46)
[2022-10-23] MEDS: POLYETHYLENE (MIRALAX) 17 GM PACK PO SCH ×4 (05:05→22:13)
[2022-10-23 07:17] LABS: Hematocrit (blood only) 27.6 % (37.0-47.0); Hemoglobin 9.5 g/dl (12.0-16.0); Mean Corpuscular Hemoglobin 32.5 pg (25.0-34.0); Mean Corpuscular Hgb Conc 34.4 g/dL (32.0-36.0); Mean Corpuscular Volume 94.5 fL (80.0-100.0); Mean Platelet Volume 10.7 fL (9.4-12.4); Platelet Count 118 K/uL (130-400); RDW Coefficient of Variation 12.4 % (11.5-14.5); RDW Standard Deviation 43.3 fL (36.4-46.3); Red Blood Count 2.92 M/uL (4.20-5.40); White Blood Count 13.54 K/ul (4.8-10.8)
[2022-10-23 07:33] LABS: BUN Creatinine Ratio 29.3 (10-20); Creatinine Clr Calc Pharmacy 48.2 ml/min; Est GFR (African American) 77.8 ml/min; Est GFR (Non-African American) 67.1 ml/min; Potassium 4.6 mmol/L (3.5-5.1)
[2022-10-23] MEDS: NIFEdipine EXTENDED REL 30 MG TABCR PO SCH (08:15)
[2022-10-23] MEDS: CHOLECALCIFEROL 5,000 UNITS 125 MCG TAB PO SCH (08:15)
[2022-10-23] MEDS: HYDROXYCHLOROQUINE SULFATE 200 MG TAB PO SCH (08:15)
[2022-10-23] MEDS: CYANOCOBALAMIN (B-12) 500 MCG TABLET PO SCH (08:15)
[2022-10-23] MEDS: dexAMETHasone 6 MG in SYRINGE 0 ML IV SCH (08:15)
--- NOTE | 2022-10-23 08:22 | Orthopedic Progress Note ---
Date of Service October 23, 2022 Assessment & Plan (1) Neurogenic claudication due to lumbar spinal stenosis: Plan: At this time we will continue physical therapy monitor her AMAN output anticipate discharge home tomorrow. Admission and Anticipated Discharge Date Admission Date: October 21, 2022 Subjective Back pain controlled leg pain markedly improved Physical Exam Physical Exam: Patient is currently in bed. She is comfortable. Is constricted testing. Results & Data Vital Signs (Past 12 Hours) Vital Signs Temp Pulse Resp BP Pulse Ox O2 Del Method 10/23/22 07:15 37.1 C 75 16 145/73 H 95 Room Air
--- NOTE | 2022-10-23 14:06 | Hospitalist Progress Note ---
Date of Service October 23, 2022 Assessment & Plan (1) Neurogenic claudication due to lumbar spinal stenosis: (2) Acute blood loss as cause of postoperative anemia: (3) Hypertension: (4) Rheumatoid arthritis: Plan This is a 82-year-old female who has a significant past medical history of HTN, rheumatoid arthritis, left and right atrial dilatation, allergic rhinitis and history of B-cell lymphoma who presents for elective lumbar procedure by Dr. Kim. Neurogenic claudication due to lumbar spinal stenosis Status post lumbar decompression fusion L4-S1, POD #[address] Kim EBL 50 mL, AMAN drain 475 mL Pain/wound management per orthopedics Activity and therapy as prescribed orthopedic Encourage incentive spirometry Acute blood loss as cause of postoperative anemia Preop hemoglobin 13, POD #1 hemoglobin 9.5 -> hgb remains at 9.5, stable Likely dilutional component as well Monitor hemoglobin, transfuse if hemoglobin less than 7 HTN BP stable Continue nifedipine and verapamil This regimen was confirmed with patient Rheumatoid arthritis On Plaquenil as OP currently on hold Elevated fasting blood glucose Glucose 171 -> obtained current A1c 5.1% Patient is receiving dexamethasone Hyponatremia sodium 131 -> 133 previously normal give nss 125cc/hr x 500ml pt appears dry, not on diuretic, no nausea repeat in a.m. Thrombocytopenia plt 104 -> 118 follow no s/sx of bleeding Hx of b cell lymphoma follows gisella for maintenance Alcohol use pt drinks 1-2 daily awss ordered, monitor DVT prophylaxis: SCDs Full code PCP. [facility] primary care in [facility] Thank you for this consultation. We will follow the patient with you during their hospital stay. You can reach a member of the [facility] Hospitalist Team 27/10 via hospitalist role on tiger text. I spent a total of 50 minutes coordinating, documenting, and providing care for this patient excluding time spent in the performance of separately billed services. Admission and Anticipated Discharge Date Admission Date: October 21, 2022 Supervising Physician Co-Signing Physician Notes Pt seen and examined by me, care coordinated w/ Yue Bennett PA-C, pls refer to her note above for further detail. Pt is an 82 yo F with HTN, rheumatoid arthritis, left and right atrial dilatation, allergic rhinitis and history of B-cell lymphoma who is s/p lumbar spine surgery by Dr. Kim. Currently patient is sitting in a chair, in NAD. She has no concerns and pain seems well controlled. She is awake alert oriented answering appropriately. Lungs are clear to auscultation. Heart sounds regular. Abdomen soft nontender nondistended. She reports passing flatus, no BM yet. Liriano removed and she is voiding. Denies any dizziness or lightheadedness. Postop hemoglobin down to 9.5 - stable today from yesterday. Will continue to closely monitor. Otherwise, plan as above. MD Lucas Subjective Patient seen and examined in 323 in follow-up for spinal surgery. Patient is resting comfortably today with some surgical site discomfort. Denies any pain in lower extremities or paresthesias. Denies any fever, chills, lightheadedness, chest pain, shortness of breath, nausea, vomiting, abdominal pain, dysuria. Passing postop flatus but no bowel movement yet. Review of Systems Review of Systems: All systems reviewed & are unremarkable except as noted in Subjective Physical Exam Physical Exam: Gen: WD/WN, NAD, lying in bed, A&Ox3 HEENT: Normocephalic, atraumatic, conjunctivae moist, sclerae anicteric, mucous membranes moist Lung: Clear to Auscultation bilaterally, no wheezes/rales/rhonchi Heart: Regular rate, regular rhythm, no murmurs, rubs, or gallops Abdomen: Soft, NT, ND +BS x 4 Extremities: Spinal dressing c/d/i. AMAN drain visualized. No edema Skin: Warm, no rash Results & Data Results & Data Vital Signs (Past 12 Hours) Vital Signs Temp Pulse Resp BP Pulse Ox O2 Del Method 10/23/22 07:15 37.1 C 75 16 145/73 H 95 Room Air Laboratory Results Short CBC 10/23/22 Range/Units 06:47 WBC 13.54 H (4.8-10.8) K/ul Hgb 9.5 L (12.0-16.0) g/dl Hct 27.6 L (37.0-47.0) % Plt Count 118 L (130-400) K/uL BMP 10/23/22 06:47 Sodium 133 L Potassium 4.6 Chloride 100 Carbon Dioxide 28 BUN 24 H Creatinine 0.82 Glucose 113 H Calcium 9.0 Diagnostic Findings Chest X-Ray 10/06/22 07:55 XR chest Pre-admission PA/Lat CLINICAL HISTORY: pat TECHNIQUE: 2 views of the chest were obtained. Comparison: Comparison is made to chest radiograph 01/08/2019 FINDINGS: No lines and tubes are seen. Calcified aortic knob is seen. The lungs are clear. No evidence of pleural effusion or pneumothorax. Degenerative changes in the spine. IMPRESSION: No acute chest disease. ACT 112: Negative or not required by law. Electronically signed by: Celso Coto M.D. 10/06/2022 11:48 AM Cervical Spine X-Ray 10/06/22 11:14 XR cervical spine 2 or 3V CLINICAL HISTORY: rheumatoid arthritis. Preop. COMPARISON STUDY: None. FINDINGS: Lateral, flexion, extension views of the cervical spine were submitted for review. The cervical spine is visualized from C1 through the superior endplate of T1. No fractures within the cervical spine. Prevertebral soft tissues and the C1-C2 interval are intact. Minimal disc space narrowing at C4- C5. Moderate to severe facet degenerative changes throughout the cervical spine. The C2-C3 facets appear fused. There is 1.7 mm of anterolisthesis of C3 on C4. This progresses to 2.4 mm on the flexion views. Stable 1.7 mm of anterolisthesis of C6 on C7 throughout flexion and extension. IMPRESSION: 1. The C1-C2 interval is intact throughout flexion and extension. 2. There is 1.7 mm of anterolisthesis of C3 on C4. This progresses to 2.4 mm on the flexion views. ACT 112: Negative or not required by law. Electronically signed by: Chavo Downing M.D. 10/06/2022 11:52 AM Lumbar Spine X-Ray 10/21/22 00:00 FL lumbar spine 2-3V CLINICAL HISTORY: L4-S1 DECOMP/FUSION COMPARISON STUDY: Lumbar spine MRI 09/16/2022. FLUOROSCOPY TIME: 36 seconds FLUOROSCOPY IMAGES: 2 Ka,r: 13.3 mGy FINDINGS: Posterior decompression and fusion from L4 through S1 with pedicle screws and rods. The hardware appears intact. Disc spacers are placed. IMPRESSION: Fluoroscopic assistance as above. ACT 112: Negative or not required by law. Electronically signed by: Chavo Downing M.D. 10/21/2022 12:56 PM
[2022-10-23] MEDS: CETIRIZINE HCL 10 MG TABLET PO SCH (20:41)
[2022-10-23] MEDS: DOCUSATE SODIUM/SENNA 50/8.6MG TAB PO SCH (20:41)
[2022-10-23] MEDS: VERAPAMIL HCL 180 MG TABCR PO SCH (20:42)
[2022-10-23] MEDS: LORazepam 1 MG TAB PO SCH (22:11)
[2022-10-24] MEDS: oxyCODONE HCL IR 5 MG TAB (IMMEDIATE RELEASE) PO PRN ×2 (01:15→10:45)
[2022-10-24] MEDS: POLYETHYLENE (MIRALAX) 17 GM PACK PO SCH (06:25)
[2022-10-24 07:23] LABS: Hemoglobin 10.3 g/dl (12.0-16.0); Mean Corpuscular Hemoglobin 31.4 pg (25.0-34.0); Mean Corpuscular Hgb Conc 34.3 g/dL (32.0-36.0); Mean Corpuscular Volume 91.5 fL (80.0-100.0); Mean Platelet Volume 10.3 fL (9.4-12.4); Platelet Count 166 K/uL (130-400); RDW Coefficient of Variation 12.2 % (11.5-14.5); RDW Standard Deviation 41.2 fL (36.4-46.3); Red Blood Count 3.28 M/uL (4.20-5.40); White Blood Count 12.43 K/ul (4.8-10.8)
[2022-10-24 07:47] LABS: BUN Creatinine Ratio 27.8 (10-20); Calcium 9.3 mg/dl (8.6-10.3); Creatinine Clr Calc Pharmacy 43.9 ml/min; Est GFR (African American) 69.5 ml/min; Potassium 4.1 mmol/L (3.5-5.1)
[2022-10-24] MEDS: NIFEdipine EXTENDED REL 30 MG TABCR PO SCH (09:07)
[2022-10-24] MEDS: HYDROXYCHLOROQUINE SULFATE 200 MG TAB PO SCH (09:07)
[2022-10-24] MEDS: CHOLECALCIFEROL 5,000 UNITS 125 MCG TAB PO SCH (09:07)
[2022-10-24] MEDS: CYANOCOBALAMIN (B-12) 500 MCG TABLET PO SCH (09:08)
[2022-10-24] MEDS: dexAMETHasone 6 MG in SYRINGE 0 ML IV SCH (09:08)
--- NOTE | 2022-10-24 09:46 | Discharge Summary ---
Date of Service October 24, 2022 Admission HPI Per Admitting Provider This is a 82-year-old female who presents with chronic persistent back and leg pain after failing since course of nonoperative care she is here for surgical invention. Principal Diagnosis Lumbar spinal stenosis with neurogenic claudication Discharge Data Allergies Allergy/AdvReac Type Severity Reaction Status Date / Time cephalexin Allergy Intermediate nausea and Verified 10/21/22 08:55 vomiting Penicillins Allergy Intermediate HIVES Verified 10/21/22 08:55 lisinopril Allergy Unknown Unknown Verified 10/21/22 08:55 losartan Allergy Unknown Unknown Verified 10/21/22 08:55 propranolol Allergy Unknown Unknown Verified 10/21/22 08:55 codeine AdvReac Intermediate GI Verified 10/21/22 08:55 intolerance Sulfa (Sulfonamide AdvReac Intermediate ACUTE Verified 10/21/22 08:55 Antibiotics) ARTHRITIC FLARE-UP Consultations 10/21/22 14:23 Consult Hospitalist Routine Procedures Performed Operation Date: 10/21/22 10:05 Actual Procedures p L4-S1 Decompression and Fusion(Not Applicable) - Abdi Kim DO Ordered Studies 10/21/22 [place] lumbar spine 2-3V Routine Hospital Course (1) Neurogenic claudication due to lumbar spinal stenosis: Patient with lumbar decompression fusion tolerated well taken to orthopedic for postoperative. Postop day 1 she was up and ambulating progress postop 2 and postoperative 3 pain was well controlled. AMAN drain decreasing probably. Excell ent strength testing. Subsequent discharge home. Discharge orders instructions found in chart for review. Total Time Total Time Spent Total Time Spent (In Minutes): 20 minutes Discharge Plan Discharge Items Patient Disposition: Home - Self-Care Reason For Visit: Spinal Stenosis Lumbar Discharge Diagnosis: Lumbar spinal stenosis with neurogenic claudication Activity: As commented below Non-emergency contact: Primary Care Provider Call non-emergency contact if: you have any medication questions Follow-up/Referrals: Rosibel nAn CRNP [Primary Care Provider] - Diet: Regular Addtl Attending Provider Instructions: ACTIVITY RECOMMENDATIONS: SELF CARE INSTRUCTIONS AFTER THORACIC/LUMBAR FUSIONS 1. You may walk to your tolerance. It is good exercise for your legs and back. Expect some back and intermittent leg aches and pains. 2. You may perform "counter-top" level activities (make a sandwich, santiago with a project, etc.). 3. No bending or lifting of more than 10 pounds or back twisting of any nature (roll like a log when turning in bed). 4. You may ride in a car for 20-30 minutes at a time. No driving until after your first visit with your doctor. 5. Frequent changes of position and restricting sitting to 30 minutes at a time will help limit the amount of back spasms and stiffness you may experience. 6. You may discontinue the use of ambulatory aids (cane, crutches, etc.) once your strength and confidence allow. 7. You may surveying teacher the shower and let water strike your incision when you arrive home at least once daily. Do not take a tub bath, sit in a hot tub or go into a swimming pool until after your first recheck in the office. SPECIAL CARE INSTRUCTIONS: VERY IMPORTANT TO READ AND REVIEW A. Your surgical incision has been closed with a cosmetic suture under the skin that will dissolve in about 6 weeks. In 14 days, you can use a pair of clean scissors and cut the suture that is left outside of the skin at the ends of your incision. 1. The small skin tapes can be removed 7 days after surgery if they have not fallen off by that point. 2. You may keep the wound open to air as much as possible to promote healing after post-op day number 5 unless told otherwise by your doctor. 3. If you think the wound looks like it is becoming infected (redness or worsening drainage) and/or you are experiencing fever, chill or worsening back pain and muscle spasms, contact the office so that we may evaluate you as soon as possible. B. Complications are uncommon, but please contact us if you have any signs or symptoms of: 1. wound infection (fever higher than 102.5 degrees F, redness, separation of wound, drainage, or increasing pain from the incision) 2. blood clots in legs (pain, swelling, redness and warmth in legs) 3. urinary tract infection (fever higher than 102.5 degrees F, burning upon urination or increased frequency of urination) 4. nerve problems (inability to walk on your toes or heels, numbness, loss of bowel or bladder control) 5. any other symptoms that concern you C. Please call the office at if you have any concerns or questions about your operation or recovery. D. No smoking! Smoking drastically decreases the chance of a solid fusion. E. Do not take any anti-inflammatory medications (Indocin, Advil, Motrin, Aspirin, Naprosyn, etc.) as these may inhibit the chance of a solid fusion. Tylenol is okay to take for pain. MANAGING PAIN AFTER SPINAL SURGERY 1. Narcotic medication is intended for short-term use and will be provided for surgical pain. Surgical pain usually lasts for a period of 4-6 weeks. Narcotic medication includes Percocet, Vicodin, Darvocet, Tylenol #3 or Lortab. 2. Longer-term pain is more appropriately treated with non-narcotic medication such as Tylenol ES. 3. Muscle spasm is not appropriately treated with narcotics. Muscle relaxers such as Soma, Flexeril or Skelaxin can be used along with Tylenol ES. 4. Remember that we all live with some "aches and pains". This is not unusual or uncommon after an injury or as we get older. a. Back pain is expected and may include muscle spasms for 4 to 6 weeks after surgery. The pain should gradually improve. If the pain worsens for no apparent reason, please contact the office. b. Intermittent leg pain may also be experienced and should not be concerned about unless it worsens for no apparent reason. If so, please contact the office. 5. We will provide appropriate medication within the normal guidelines of their prescribed use. We will also be very cautious and aware of potential abuse and extended duration of patients' medication needs. a. Pain medications are for your comfort and to assist with sleep and rest so that the tissue can heal. They are not provided in order to return to normal activity and should not be used through the day. To do so or worsening pain at night can result from ongoing tissue damage and development of tolerance to the prescribed medicine. 6. Please allow 2-3 days to process refills. Prescriptions will not be mailed but must be picked up at the office. FOLLOW UP VISIT: Keep your scheduled follow-up appointment. Any questions, please call the office at . Pending Studies at Discharge: No Stand-Alone Forms: My [employer], Smoking Cessation Medications and DC Order Prescriptions: New tramadol 50 mg tablet 50 mg PO Q6H PRN (Reason: pain, moderate) Qty: 30 0RF oxycodone 5 mg tablet 5 mg PO Q6H PRN (Reason: pain) Qty: 30 0RF Continued verapamil 180 mg capsule,ext rel. pellets 24 hr 180 mg PO HS diclofenac sodium 1 % gel 1 ea topical .Apply to affected area BID as directed. PRN (Reason: Pain) cholecalciferol (vitamin D3) 25 mcg (1,000 unit) capsule 25 mcg PO QAM diazepam 5 mg tablet 5 mg PO .TAKE 1 TABLET 4 TIMES DAILY NEEDED. PRN (Reason: Anxiety) hydroxychloroquine 200 mg tablet 400 mg PO QAM lorazepam 1 mg tablet 1 mg PO HS naproxen sodium 220 mg tablet 220 mg PO .TAKE 1 TABLET EVERY 12 HOURS NEEDED. PRN (Reason: Pain) nifedipine 90 mg tablet extended release 24hr 90 mg PO QAM cyanocobalamin (vitamin B-12) 500 mcg tablet 500 mcg PO QAM cetirizine 10 mg tablet 10 mg PO QPM acetaminophen [Tylenol] 325 mg Tablet 650 mg PO BID Eye Vitamin Areds 1 tab PO BID Discharge Orders: Discharge Order (Routine); Ordered 10/24/22 Ordered By: Abdi Kim Admission Data Admit Date/Time: 10/21/22 12:32 Attending Provider: Abdi Kim Admit Provider: Abdi Kim Primary Care Provider: Rosibel Ann Other Providers: Daisy Senior ; Gabe Zavala ; Magalis Bennett
--- NOTE | 2022-10-24 14:21 | Hospitalist Progress Note ---
Date of Service October 24, 2022 Assessment & Plan (1) Neurogenic claudication due to lumbar spinal stenosis: (2) Acute blood loss as cause of postoperative anemia: (3) Hypertension: (4) Rheumatoid arthritis: Plan This is a 82-year-old female who has a significant past medical history of HTN, rheumatoid arthritis, left and right atrial dilatation, allergic rhinitis and history of B-cell lymphoma who presents for elective lumbar procedure by Dr. Kim. Neurogenic claudication due to lumbar spinal stenosis Status post lumbar decompression fusion L4-S1, POD #[address] Kim EBL 50 mL, AMAN drain 475 mL Pain/wound management per orthopedics Activity and therapy as prescribed orthopedic Encourage incentive spirometry Acute blood loss as cause of postoperative anemia Hgb improved to 10.3 Likely dilutional component as well Monitor hemoglobin, transfuse if hemoglobin less than 7 HTN BP stable Continue nifedipine and verapamil This regimen was confirmed with patient Rheumatoid arthritis On Plaquenil as OP currently on hold Elevated fasting blood glucose Glucose 171 -> obtained current A1c 5.1% Patient is receiving dexamethasone Hyponatremia sodium 131 -> 133 previously normal give nss 125cc/hr x 500ml pt appears dry, not on diuretic, no nausea Expect to improve w/ improved PO intake - recommend to follow up as outpt. Thrombocytopenia plt 104 -> 118 follow no s/sx of bleeding Hx of b cell lymphoma follows Neema for maintenance Alcohol use pt drinks 1-2 daily awss ordered, monitor DVT prophylaxis: SCDs Full code PCP [facility] primary care in [facility] Thank you for this consultation. We will follow the patient with you during their hospital stay. You can reach a member of the [facility] Hospitalist Team 27/10 via hospitalist role on tiger text. I spent a total of 35 minutes coordinating, documenting, and providing care for this patient excluding time spent in the performance of separately billed services. Admission and Anticipated Discharge Date Admission Date: October 21, 2022 Supervising Physician Co-Signing Physician Notes Pt seen and examined by me, care coordinated w/ Yue Bennett PA-C, pls refer to her note above for further detail. Pt is an 82 yo F with HTN, rheumatoid arthritis, left and right atrial dilatation, allergic rhinitis and history of B-cell lymphoma who is s/p lumbar spine surgery by Dr. Kim. Currently patient is sitting in a chair, in NAD. She has no concerns and pain seems well controlled. She is awake alert oriented answering appropriately. Lungs are clear to auscultation. Heart sounds regular. Abdomen soft nontender nondistended. She reports passing flatus, no BM yet. She he is voiding. Denies any dizziness or lightheadedness. Postop hemoglobin down to 9.5 -. now improved to 10.3. Sodium on lower side between 130 and 133, should improve post-op when po intake improves. Recommend to follow up as outpt. Pt to be discharged home today. MD Lucas Subjective Patient seen and examined in 323 in follow-up for spinal surgery. Patient is resting comfortably in bedside chair without complaint. Denies any pain in lower extremities or paresthesias. Denies any fever, chills, lightheadedness, chest pain, shortness of breath, nausea, vomiting, abdominal pain, dysuria. Passing more postop flatus but no bowel movement yet. Review of Systems Review of Systems: At least ten systems reviewed and negative except as noted in the HPI. Physical Exam Physical Exam: Gen: WD/WN, NAD, sitting in bedside chair, A&Ox3 HEENT: Normocephalic, atraumatic, conjunctivae moist, sclerae anicteric, mucous membranes moist Lung: Clear to Auscultation bilaterally, no wheezes/rales/rhonchi Heart: Regular rate, regular rhythm, no murmurs, rubs, or gallops Abdomen: Soft, NT, ND +BS x 4 Extremities: Spinal dressing c/d/i. AMAN drain visualized with minimal output. No edema Skin: Warm, no rash Results & Data Results & Data Vital Signs (Past 12 Hours) Vital Signs Temp Pulse Resp BP BP Pulse Ox O2 Del Method 10/24/22 10:39 36.7 C 68 16 165/89 H 170/78 H 97 10/24/22 07:39 36.7 C 68 16 170/78 H 97 Room Air Laboratory Results Short CBC 10/24/22 Range/Units 07:00 WBC 12.43 H (4.8-10.8) K/ul Hgb 10.3 L (12.0-16.0) g/dl Hct 30.0 L (37.0-47.0) % Plt Count 166 (130-400) K/uL BMP 10/24/22 07:00 Sodium 130 L Potassium 4.1 Chloride 96 L Carbon Dioxide 29 BUN 25 H Creatinine 0.90 Glucose 107 H Calcium 9.3 Diagnostic Findings Chest X-Ray 10/06/22 07:55 XR chest Pre-admission PA/Lat CLINICAL HISTORY: pat TECHNIQUE: 2 views of the chest were obtained. Comparison: Comparison is made to chest radiograph 01/08/2019 FINDINGS: No lines and tubes are seen. Calcified aortic knob is seen. The lungs are clear. No evidence of pleural effusion or pneumothorax. Degenerative changes in the spine. IMPRESSION: No acute chest disease. ACT 112: Negative or not required by law. Electronically signed by: Celso Coto M.D. 10/06/2022 11:48 AM Cervical Spine X-Ray 10/06/22 11:14 XR cervical spine 2 or 3V CLINICAL HISTORY: rheumatoid arthritis. Preop. COMPARISON STUDY: None. FINDINGS: Lateral, flexion, extension views of the cervical spine were submitted for review. The cervical spine is visualized from C1 through the superior endplate of T1. No fractures within the cervical spine. Prevertebral soft tissues and the C1-C2 interval are intact. Minimal disc space narrowing at C4- C5. Moderate to severe facet degenerative changes throughout the cervical spine. The C2-C3 facets appear fused. There is 1.7 mm of anterolisthesis of C3 on C4. This progresses to 2.4 mm on the flexion views. Stable 1.7 mm of anterolisthesis of C6 on C7 throughout flexion and extension. IMPRESSION: 1. The C1-C2 interval is intact throughout flexion and extension. 2. There is 1.7 mm of anterolisthesis of C3 on C4. This progresses to 2.4 mm on the flexion views. ACT 112: Negative or not required by law. Electronically signed by: Chavo Downing M.D. 10/06/2022 11:52 AM Lumbar Spine X-Ray 10/21/22 00:00 [place] lumbar spine 2-3V CLINICAL HISTORY: L4-S1 DECOMP/FUSION COMPARISON STUDY: Lumbar spine MRI 09/16/2022. FLUOROSCOPY TIME: 36 seconds FLUOROSCOPY IMAGES: 2 Ka,r: 13.3 mGy FINDINGS: Posterior decompression and fusion from L4 through S1 with pedicle screws and rods. The hardware appears intact. Disc spacers are placed. IMPRESSION: Fluoroscopic assistance as above. ACT 112: Negative or not required by law. Electronically signed by: Chavo Downing M.D. 10/21/2022 12:56 PM
--- NOTE | 2022-10-27 12:28 | Coding Query ---
CODING QUERY To promote full compliance with coding requirements relating to patient care, provider participation is requested in all cases of sourcing coordinator uncertainty. Please assist us with the question(s) below: Coding Question(s): The Operative Report documents under Actual Procedures that interbody fusion was performed L4-L5 L5-S1with cages placed L4-L5 and L5-S1, however the Description of Procedure documents, " By way of transforaminal approach and right complete discectomy of L4-5 was performed endplates curetted to subcortical mean bone and the 12 x 26 mm Spira cage with I factor tapped in position. Then proceeded L4-[address] the transforaminal approach on the right complete discectomy was performed endplates curetted to subcortical mean bone and 11 x 26 mm Spira cage with I factor tapped position?. Please specify below: ( ) interbody fusion with complete discectomy and Spira cage was performed only at the L4-L5 ( x) interbody fusion with complete discectomy and Spira cage was performed at both the L4-L5, and at the L5-S1 ( ) Other: Please Specify Physician's Response(s): Thank you Leidy Rob Principal Diagnosis: "that condition established after study, to be chiefly responsible for occasioning the admission of the patient to the hospital for care." Co-Existing Principal Diagnosis: "when two or more diagnoses equally meet the criteria for principal diagnosis as determined by the circumstances of admission, diagnostic work up, and/or therapy provided, and the Alphabetic Index, Tabular List, or another coding guideline does not provide sequencing direction, any one of the diagnoses may be sequenced first." "When the physician has documented what appears to be a current diagnosis in the body of the record, but has not included the diagnosis in the final diagnostic statement, the physician should be asked whether the diagnosis should be added." (Source [facility]oding [facility] 2 QTR90. p3-4) IRENE
== END 2022-10-24 11:53 | disposition home or self-care (01) | DRG 454 ==
LOC: ASU 08:15 → 3E 12:32

== ENCOUNTER 2023-08-17 06:53 | Observation (INO) ==
--- NOTE | 2023-07-10 12:45 | PAT Medication Instructions ---
Medication Instructions Date of Service July 10, 2023 Home Medications cetirizine 10 mg tablet 10 mg PO QPM cholecalciferol (vitamin D3) 25 mcg (1,000 unit) capsule 25 mcg PO QAM cyanocobalamin (vitamin B-12) 500 mcg tablet 500 mcg PO QAM diazepam 5 mg tablet 5 mg PO QID PRN Anxiety diclofenac sodium 1 % topical gel 1 ea topical BID PRN Pain hydroxychloroquine 200 mg tablet 400 mg PO QAM lorazepam 1 mg tablet 1 mg PO HS naproxen sodium 220 mg tablet 220 mg PO BID PRN Pain nifedipine 90 mg tablet,extended release 24 hr 90 mg PO QAM verapamil 180 mg 24 hr capsule,extended release 180 mg PO HS acetaminophen 325 mg tablet (Tylenol) 650 mg PO BID vit C 250 mg-vit E 90 mg-zinc 40 mg-copper 1 [id number] capsule (PreserVision AREDS-2) 1 tab PO AMHS ASK your surgeon for instructions diclofenac sodium 1 % topical gel 1 ea topical BID PRN Pain naproxen sodium 220 mg tablet 220 mg PO BID PRN Pain ASK your prescriber and surgeon hydroxychloroquine 200 mg tablet 400 mg PO QAM STOP taking 2 weeks before surgery vit C 250 mg-vit E 90 mg-zinc 40 mg-copper 1 [id number] capsule (PreserVision AREDS-2) 1 tab PO AMHS DO NOT take the morning of surgery cholecalciferol (vitamin D3) 25 mcg (1,000 unit) capsule 25 mcg PO QAM cyanocobalamin (vitamin B-12) 500 mcg tablet 500 mcg PO QAM Take morning of surgery With a small sip of water, OTHERWISE NOTHING TO EAT OR DRINK AFTER MIDNIGHT: diazepam 5 mg tablet 5 mg PO QID PRN Anxiety (if needed) nifedipine 90 mg tablet,extended release 24 hr 90 mg PO QAM acetaminophen 325 mg tablet (Tylenol) 650 mg PO BID Take evening before surgery cetirizine 10 mg tablet 10 mg PO QPM diazepam 5 mg tablet 5 mg PO QID PRN Anxiety (if needed) lorazepam 1 mg tablet 1 mg PO HS verapamil 180 mg 24 hr capsule,extended release 180 mg PO HS acetaminophen 325 mg tablet (Tylenol) 650 mg PO BID Other Notes If you have any questions please call us at [phone] or [phone] or [phone] or [phone]
--- NOTE | 2023-07-17 12:03 | Anesthesiology Consultation ---
Date of Service July 17, 2023 Assessment & Plan (1) Encounter for pre-operative examination: Chart Review Chart Review: Acceptable Risk for Surgery (pending surgeon ordered PCP clearance ) and Patient seen in Pre Admission Testing - Awaiting PCP clearance (done already per patient)- (MARGARET Lara with [facility]) Lumbar fusion done 10/2022- will leave to anesthesiologist discretion regarding if PROSPER will be done under SAB or GA (patient educated on both types) - Patient is NOT an OPJ candidate due to no home support (surgeon changed patient to 23 hour obs) Per PAT appt on 07/17/23, no recent illness/disease exposures, illness related symptoms, or recent illness/disease positive tests. Will leave to surgeon's discretion if preop Covid testing needed L4-S1 decompression and fusion 10/21/22= Done under GA with Grade 1 view with Glidescope #3. ETT #7.0. Atraumatic neck neutral throughout, teeth as preop. Teaching & Discussion Pre-Anesthesia Teaching/Discussion Notes: Instructed NPO after midnight before surgery,except medications with 15 cc of water. Medication instructions provided according to the PAT guidelines. History Surgery Operation Date: 08/17/23 07:30 Proposed Procedures p Right Total Hip Arthroplasty Anterior Approach - Best Knapp MD Height/Weight Height: 5 ft 5.5 in Weight: 57 kg Allergies Allergy/AdvReac Type Severity Reaction Status Date / Time cephalexin Allergy Intermediate nausea and Verified 07/06/23 10:03 vomiting Penicillins Allergy Intermediate HIVES Verified 07/06/23 10:03 lisinopril Allergy Unknown Unknown Verified 07/06/23 10:03 losartan Allergy Unknown Unknown Verified 07/06/23 10:03 propranolol Allergy Unknown Unknown Verified 07/06/23 10:03 codeine AdvReac Intermediate GI Verified 07/06/23 10:03 intolerance Sulfa (Sulfonamide AdvReac Intermediate ACUTE Verified 07/06/23 10:03 Antibiotics) ARTHRITIC FLARE-UP Medications Home Medications Medication Instructions Recorded Confirmed Last Taken cetirizine 10 mg tablet 10 mg PO QPM 11/18/19 07/06/23 10/20/22 21:00 cholecalciferol (vitamin D3) 25 25 mcg PO QAM 11/18/19 07/06/23 10/20/22 mcg (1,000 unit) capsule cyanocobalamin (vitamin B-12) 500 500 mcg PO QAM 11/18/19 07/06/23 10/18/22 mcg tablet diazepam 5 mg tablet 5 mg PO QID PRN Anxiety 11/18/19 07/06/23 Unknown diclofenac sodium 1 % topical gel 1 ea topical BID PRN Pain 11/18/19 07/06/23 Unknown hydroxychloroquine 200 mg tablet 400 mg PO QAM 11/18/19 07/06/23 10/20/22 08:00 lorazepam 1 mg tablet 1 mg PO HS 11/18/19 07/06/23 10/20/22 21:00 naproxen sodium 220 mg tablet 220 mg PO BID PRN Pain 11/18/19 07/06/23 10/12/22 nifedipine 90 mg tablet,extended 90 mg PO QAM 11/18/19 07/06/23 10/21/22 07:00 release 24 hr verapamil 180 mg 24 hr 180 mg PO HS 08/29/21 07/06/23 10/20/22 21:00 capsule,extended release acetaminophen 325 mg tablet 650 mg PO BID 10/01/22 07/06/23 10/20/22 21:00 (Tylenol) vit C 250 mg-vit E 90 mg-zinc 40 1 tab PO AMHS 07/06/23 07/06/23 Unknown mg-copper 1 [id number] capsule (PreserVision AREDS-2) Past Medical History Medical History Chronic right SI joint pain x years GERD (gastroesophageal reflux disease) controlled, stable per pt History of blood transfusion 01/2009 with bilat knee replacements (done at same) Hypertension controlled, stable per pt Lumbar spondylosis Lymphoma Dxed around 2017. [facility] monitors. Under observation (no chemo or XRT) Macular degeneration Follows with eye doctor routinely Osteopenia Rheumatoid arthritis Follows rheumatology - Dr. Lora ([place]) Spinal stenosis Cervical and lumbar spine (recent lumbar fusion) Exercise / Class Metabolic Activity II 4-5 Yardwork/Stairs/Walk up hill (one flight of stairs - no chest pain or SOB ) Past Family History Family History Mother Colorectal cancer Father COPD (chronic obstructive pulmonary disease) Hypertension Sister [id number] deficiency Lewy body dementia COPD (chronic obstructive pulmonary disease) Family/Other Diabetes, Onset Age: 17 granddaughter Other No family history of adverse response to anesthesia Denies family history of Ovarian cancer Breast cancer Past Surgical History Surgical History H/O adenoidectomy H/O dilation and curettage H/O foot surgery L H/O lymph node excision [facility], R arm H/O oral surgery permanent front upper bridge and multiple implants H/O spinal fusion 10/21/22 L4-S1 Dr. Kim @ [facility] History of appendectomy History of carpal tunnel release bilateral History of cataract surgery History of left knee replacement History of nasal surgery History of right knee joint replacement Hx of colonoscopy Hx of tonsillectomy S/P rotator cuff repair R Past Anesthesia History No Hx of Anesthesia Complications (with exception to lightheadedness post op from bilateral TKAs (remote hx)) and No Family Hx of Anesthesia Complications History of PONV No Hx of PONV and No Hx of Motion Sickness Social History Smoking Status: Former smoker Do You Dip or Chew Tobacco: No Smoking End Date: "quit years ago" Hx Alcohol Use: Yes Alcohol type: wine alcohol intake frequency: 0-2 drinks per day (1 glass/day) Hx Substance Use: No substance use type: does not use Review of Systems - Hx of sleep study- no FUNMILAYO (done many years ago) - Chronic rhinitis Patient denies chest pain, shortness of breath, dyspnea on exertion, cough, wheezing, palpitations. No hx of seizures, stroke, RI, apnea/snoring. No hx of blood clots Physical Exam Vital Signs VITALS BP 159/80 P 93 TEMP SP02 96% RESP 16 Constitutional no acute distress ENMT Mouth: no TMJ clicking Thyromental Distance: > or= 3.5 Finger Breadths (3.5) Mallampati Class: III Crowns to top and bottom front teeth (almost all teeth) Permanent bridge to top front teeth Neck + limited neck extension (mild) Respiratory normal respiratory effort; no respiratory distress Auscultation: lungs clear to auscultation bilaterally; no wheezes Cardiovascular Rate/Rhythm: regular rate and regular rhythm Heart Sounds: no murmur Vessels: no carotid bruit Musculoskeletal Spine: + pain with cervical ROM (mild) Extremities: extremities normal to inspection Psychiatric Orientation: alert Lab Results Anesthesia Preop Results Results Anesthesia Widget: WBC 5.64 K/ul (4.8-10.8) 07/17/23 Hgb 12.4 g/dl (12.0-16.0) 07/17/23 Hct 38.3 % (37.0-47.0) 07/17/23 Plt 132 K/uL (130-400) 07/17/23 PT 10.8 Seconds (9.0-12.0) 07/17/23 PTT 31 Seconds (21-31) 07/17/23 INR 1.0 (0.9-1.1) 07/17/23 Urine Color Yellow 07/17/23 Urine Appearance Clear (Clear) 07/17/23 Urine pH 7.5 (4.5-7.5) 07/17/23 Urine Specific Kinsey 1.006 (1.000-1.030) 07/17/23 Urine Protein Negative (Negative) 07/17/23 Urine Glucose (UA) Negative (Negative) 07/17/23 Urine Ketones Negative (Negative) 07/17/23 Urine Blood Negative (Negative) 07/17/23 Urine Nitrite Negative (Negative) 07/17/23 Urine Bilirubin Negative (Negative) 07/17/23 Urine Urobilinogen Negative (Negative) 07/17/23 Urine Leukocyte Esterase Trace (Negative) H 07/17/23 Urine WBC (Auto) 0-5 /hpf (0-5) 07/17/23 Urine RBC (Auto) 0-2 /hpf (0-2) 07/17/23 Urine Hyaline Casts (Auto) 0-2 /lpf (0-2) 07/17/23 Urine Epithelial Cells (Auto) 3-5 /hpf (0-2) H 07/17/23 Urine Bacteria (Auto) None Seen (None Seen) 07/17/23 Blood Type B Positive 07/17/23 Antibody Screen NEGATIVE 07/17/23 Testing Laboratory Results 06/23/23= SODIUM: 139 POTASSIUM: 4.1 CHLORIDE: 102 CO2: 27 BUN: 28 CREATININE: 0.94 GLUCOSE: 105 Electrocardiogram Date: 10/06/22 NSR, rate 90 bpm Right atrial enlargement Moderate voltage criteria for LVH, may be normal variant Nonspecific ST abnormality Chest X-Ray Date: 10/06/22 No lines and tubes are seen. Calcified aortic knob is seen. The lungs are clear. No evidence of pleural effusion or pneumothorax. Degenerative changes in the spine. IMPRESSION: No acute chest disease. Cervical Spine Date: 07/17/23 FINDINGS: The cervical spine is visualized from C1 through the superior endplate of T1. No fractures within the cervical spine. Prevertebral soft tissues and the C1-C2 interval are intact. Minimal disc space narrowing at C4-C5. Moderate to severe facet degenerative changes throughout the cervical spine. The C2-C3 facets appear fused. There is 1.7 mm of anterolisthesis of C3 on C4. This progresses to 2.4 mm on the flexion views. Stable 1.7 mm of anterolisthesis of C6 on C7 throughout flexion and extension. IMPRESSION: 1. The C1-C2 interval is intact throughout flexion and extension. 2. There is 1.7 mm of anterolisthesis of C3 on C4. This progresses to 2.4 mm on the flexion views. This remains unchanged. (Patient had lumbar fusion under GA 10/2022 without noted issues (neck remained neural during intubation)
--- NOTE | 2023-08-12 15:33 | History & Physical Report ---
Date of Service August 12, 2023 Assessment & Plan (1) Arthritis of right hip: Plan: Right cemented total hip replacement direct anterior approach overnight stay and then home [facility] History of Present Illness Chief Complaint: Right hip pain Primary Care Provider: MARGARET Paez Patient is an 83-year-old woman with a history of osteoarthritis of the spine and hip. She is status post lumbar decompression and fusion 10/26. She now has had 8 months of residual left-sided hip and groin pain. The pain is also in the buttock and is associated with decreased range of motion decreased standing and walking tolerance. She requires a walker for a lot of activities of daily living. She rates her pain as an 8 out of 10. She has failed intra-articular injections and has radiographic evidence of end-stage arthritis of the hip. She is admitted for elective hip replacement surgery. Allergies Allergy/AdvReac Type Severity Reaction Status Date / Time cephalexin Allergy Intermediate nausea and Verified 07/06/23 10:03 vomiting Penicillins Allergy Intermediate HIVES Verified 07/06/23 10:03 lisinopril Allergy Unknown Unknown Verified 07/06/23 10:03 losartan Allergy Unknown Unknown Verified 07/06/23 10:03 propranolol Allergy Unknown Unknown Verified 07/06/23 10:03 codeine AdvReac Intermediate GI Verified 07/06/23 10:03 intolerance Sulfa (Sulfonamide AdvReac Intermediate ACUTE Verified 07/06/23 10:03 Antibiotics) ARTHRITIC FLARE-UP Home Medications Medication Instructions Recorded Confirmed Type cetirizine 10 mg tablet 10 mg PO QPM 11/18/19 07/06/23 History cholecalciferol (vitamin D3) 25 25 mcg PO QAM 11/18/19 07/06/23 History mcg (1,000 unit) capsule cyanocobalamin (vitamin B-12) 500 500 mcg PO QAM 11/18/19 07/06/23 History mcg tablet diazepam 5 mg tablet 5 mg PO QID PRN Anxiety 11/18/19 07/06/23 History diclofenac sodium 1 % topical gel 1 ea topical BID PRN Pain 11/18/19 07/06/23 History hydroxychloroquine 200 mg tablet 400 mg PO QAM 11/18/19 07/06/23 History lorazepam 1 mg tablet 1 mg PO HS 11/18/19 07/06/23 History naproxen sodium 220 mg tablet 220 mg PO BID PRN Pain 11/18/19 07/06/23 History nifedipine 90 mg tablet,extended 90 mg PO QAM 11/18/19 07/06/23 History release 24 hr verapamil 180 mg 24 hr 180 mg PO HS 08/29/21 07/06/23 History capsule,extended release acetaminophen 325 mg tablet 650 mg PO BID 10/01/22 07/06/23 History (Tylenol) vit C 250 mg-vit E 90 mg-zinc 40 1 tab PO AMHS 07/06/23 07/06/23 History mg-copper 1 [id number]-taaxlo capsule (PreserVision AREDS-2) Past Med/Surg History Medical History GERD (gastroesophageal reflux disease) controlled, stable per pt History of blood transfusion 01/2009 with bilat knee replacements (done at same) Osteopenia Spinal stenosis Cervical and lumbar spine (recent lumbar fusion) Lymphoma Dxed around 2016. [facility] monitors. Under observation (no chemo or XRT) Chronic right SI joint pain x years Lumbar spondylosis Macular degeneration Follows with eye doctor routinely Hypertension controlled, stable per pt Rheumatoid arthritis Follows rheumatology - Dr. Lora ([place]) Surgical History H/O spinal fusion 10/21/22 L4-S1 Dr. Kim @ [facility] History of left knee replacement History of right knee joint replacement H/O lymph node excision [facility], R arm Hx of colonoscopy H/O dilation and curettage History of cataract surgery History of appendectomy H/O oral surgery permanent front upper bridge and multiple implants H/O adenoidectomy Hx of tonsillectomy History of nasal surgery S/P rotator cuff repair R H/O foot surgery L History of carpal tunnel release bilateral Family History Mother Colorectal cancer Father COPD (chronic obstructive pulmonary disease) Hypertension Sister Iwdic-8-qwactrvdoot deficiency Lewy body dementia COPD (chronic obstructive pulmonary disease) Family/Other Diabetes, Onset Age: 17 granddaughter Other No family history of adverse response to anesthesia Denies family history of Ovarian cancer Breast cancer Social History Smoking Status: Former smoker Tobacco Type: Cigarettes Smoking End Date: "quit years ago"; Second Hand Exposure: No; Do You Dip or Chew Tobacco: No; Tobacco Cessation Education Requested by Patient: No Hx Alcohol Use: Yes Alcohol type: wine Hx Substance Use: No Preferred Language: Chinese Communication Ability: Effective Telegraph Messenger Required: No Beliefs That Will Affect Care: Uatsdin Uatsdin Beliefs: Taoist marital status: Single Current Living Situation: Alone current occupational status: retired Other Information That Helps Us Care for You: No Feels Safe at Home: Yes Safety Concerns: Feels Safe At This Time Assistive Devices: None Review of Systems Review of Systems: Hip and groin pain Physical Exam Physical Exam: Weight 56 kg BMI 25 General: Thin statured woman who appears her stated age HEENT: NCAT, EOMI, PERRLA Neck: Supple without bruits Heart: Regular rate and rhythm no murmurs Lungs: Breath sounds clear and equal in all acharya Abdomen: Flat soft nontender bowel sounds are positive Extremities: The right hip shows equal leg lengths to the left passive range of motion is 5 to 80 degrees flexion -20 degrees internal rotation all which reproduces groin pain. Neurological and vascular: Intact Results & Data Results & Data Vital Signs (Past 12 Hours) Blood pressure 144/72 Pulse 92
[~2023-08-17 06:53] MED LIST changes: -ACETAMINOPHEN 500 MG TAB PO SCH; +ALLERGY Noted to ORDERED Medication SCH; +BUPIVACAINE 0.5 % 5 MG/1 ML PF 10ML VIAL ONE; -CLINDAMYCIN/D5W 900 MG/50 ML BAG IV SCH; -GABAPENTIN 300 MG CAP PO SCH; -LR 15ML/HR IV SCH; -LR 500ML BOLUS IV SCH; +NIFEdipine EXTENDED REL 30 MG TABCR PO PRN; +VERAPAMIL HCL 40 MG TAB PO PRN
--- OUTSIDE RECORDS SUMMARY | 2023-08-17 06:56 | External Medical Summary | Continuity of Care Document ---
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 Thrombocytopenia(Discharge Diagnosis) - 08/11/23 Discharge Disposition: Home or Self Care Attending Physician: MD Lyons W Christopher Referring Physician: MD Lyons W Christopher Allergies, Adverse Reactions, Alerts Substance Reaction Severity Status codeine Vomiting Nausea Active penicillins Hives Active sulfa drugs immobile Active Medications Aleve 220 mg oral tablet Start: 10/26/12 9:42:00, 1 tab, PO, Daily Start Date: 10/26/12 Status: Suspended Claritin Start: 01/20/20 13:53:00 EDT, 5 mg =, PO, Daily, PRN Start Date: 01/20/20 Status: Ordered fluticasone 27.5 mcg/inh nasal spray Start: 03/08/18 10:53:00 EST, 2 spray, each nostril, Daily, PRN: allergy symptoms Start Date: 03/08/18 Status: Ordered LORazepam Start: 01/20/20 13:52:00 EDT, 2 mg =, PO, qhs Start Date: 01/20/20 Status: Ordered multivitamin Start: 08/12/22 13:16:00 EDT, 1 tab, PO, Daily Start Date: 08/12/22 Status: Ordered Plaquenil Sulfate 200 mg oral tablet Start: 08/21/11 16:00:00, 2 tab, PO, Daily, Disp# 180 tab, Refills: 1, Pharmacy: [facility] Start Date: 08/21/11 Status: Ordered PreserVision AREDS 2 oral capsule Start: 08/14/20 9:27:00 EDT, 1 cap, PO, bid Start Date: 08/14/20 Status: Ordered Procardia XL Start: 04/19/09 16:01:20, 90 mg =, PO, qAM, Refills: 0, current medication from another provider Start Date: 04/19/09 Status: Ordered Tylenol Start: 03/08/18 10:52:00 EST, 650 mg =, PO, bid Start Date: 03/08/18 Status: Ordered verapamil Start: 09/06/18 8:57:00 EDT, 180 mg =, PO, Daily Start Date: 09/06/18 Status: Ordered Vitamin D3 Start: 01/20/20 13:54:00 EDT, 5,000 Int_Unit =, PO, Daily Start Date: 01/20/20 Status: Ordered Voltaren 1% topical gel Start: 01/20/20 13:52:00 EDT, topical, PRN Start Date: 01/20/20 Status: Ordered Mental Status 08/11/23 Barriers to Learning one year None evide nt Mandatory Health Literacy Documentation Yes Communication Barrier Present No Health Literacy Communication Barriers N ever Primary Language Tajik Problem List Condition Confirmation Course Effective Dates Status Health Status Informant Abscess Confirmed Active Actinic keratosis Confirmed Active Desmoid tumor Confirmed Active Ankle pain Confirmed Active Atrial dilation Confirmed Active 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 Changing skin lesion Confirmed Active Chronic musculoskeletal pain Confirmed Active Pigmentation abnormality of skin Confirmed Active Long-term use of hydroxychloroquine Confirmed Active Dysplastic nevus Confirmed Active Epidermal cyst Confirmed Active Foot pain Confirmed Active GERD (gastroesophageal reflux disease) Confirmed Active Decreased GFR Confirmed Active History of basal cell carcinoma of skin Confirmed Active Hyperlipidemia Confirmed Active HYPERTENSION Confirmed Active Insomnia Confirmed Active Lentigines Confirmed Active Marginal zone lymphoma Confirmed Active Milia Confirmed Active Cervical muscle pain Confirmed Active Cervicalgia Confirmed Active Neck pain Confirmed Active Osteoarthritis Confirmed Active Osteopenia Confirmed Active PERSONAL HISTORY OF OTHER MALIGNANT NEOPLASM OF SKIN 1 Confirmed Active Pigmented purpuric dermatosis Confirmed Active Encounter for cosmetic procedure Confirmed Active Schamberg's purpura Confirmed Active Rheumatoid arthritis involving multiple sites with positive rheumatoid factor Confirmed Active Seborrheic keratoses Confirmed Active Senile hyperkeratosis Confirmed Active Solar lentigo Confirmed Active Thoracic and lumbosacral neuritis Confirmed Active Rhytides Confirmed Active 1hx of bcc Diagnosis Diagnosis Type Effective Dates Health Status Clinical Service Informant Marginal zone lymphoma Discharge Diagnosis 08/08/23 Thrombocytopenia Discharge Diagnosis 08/11/23 Procedures Procedure Date Related Diagnosis Body Site Status Surgery 10/21/22 Completed Mohs micrographic surgery 09/17/20 Completed Injection 08/17/20 Completed Shave biopsy of skin 08/14/20 Comp leted Shave biopsy and cauterizati on of skin 1 09/27/19 Completed Shave biopsy and cauterization of skin 03/15/19 Completed Punch biopsy of skin 11/08/18 Comp leted Shave biopsy and cauterisation of skin 09/06/[address] scan - whole body 2 06/16/18 Co mpleted DEXA (dual energy X-ray phot on absorptiometry) scan of lateral spine 3 04/14/18 Completed Injection 4 04/07/18 Completed Shave biopsy and cauterization of skin 09/03/17 Completed Excision 5 06/2016 Completed Arm 2017 Completed Shave biopsy of skin 07/31/15 Comp leted Rotator cuff 6 08/01/14 Completed Colonoscopy 2014 Completed Triple arthrodesis 7 12/25/10 Comp leted Knee replacement 8 2008 Comple rachel Repair of ptosis BULs, BLLs 1999 Completed APPENDECTOMY Completed Carpal tunnel release 9 C ompleted EXCISION OF TONSIL TAGS C ompleted Shave biopsy of skin Comp leted 1curette x1 2abdomen-as per pt 3dexascan of entire body-as per pt 4pelvis injection for right hip- 5"lumps removed from arm" "lymphoma" 6right 7left 8bilateral 9L/R Results Laboratory List Name Date Complete Blood Count w Differential (CBC ,DIFFH) 08/11/23 Comprehensive Metabolic Panel (COMP META B PANEL) 08/11/23 Immunoglobulin M (IGM) 08/11/23 Most recent to oldest [Reference Range]: 1 eGFR CKD-EPI [>60 mL/min/1.73 m2] 54 mL/ min/1.73 m2 *LOW* (08/11/23 12:18 PM) Estimated CrCl 36.83 mL/min (08/11/23 12:59 PM) MPV [9.0-12.2 fL] 9.5 fL (08/11/23 12:18 PM) Immature Gran% 0.2 % (08/11/23 12:18 PM) Neut% 61.2 % (08/11/23 12:18 PM) Lymph% 28.0 % (08/11/23 12:18 PM) [place]% 8.8 % (08/11/23 12:18 PM) Baso% 0.9 % (08/11/23 12:18 PM) Eos% 0.9 % (08/11/23 12:18 PM) Immat Gran, Abs [0-0.4 K/uL] 0.01 K/uL (08/11/23 12:18 PM) Neut, Abs [2.0-7.7 K/uL] 3.48 K/uL (08/11/23:18 PM) Lymph, Abs [1.0-3.4 K/uL] 1.59 K/uL (08/11/23 12:18 PM) [place], Abs [0-1.0 K/uL] 0.50 K/uL (08/11/23 12:18 PM) Baso, Abs [0-0.1 K/uL] 0.05 K/uL (08/11/23 12:18 PM) Eos, Abs [0-0.5 K/uL] 0.05 K/uL (08/11/23 12:18 PM) Type of Diff: AUTO *Unknown* (08/11/23 PM) RDW [11.5-14.2 %] 13.5 % (08/11/23 1218 PM) Anion Gap [5-14 mmol/L] 15 mmol/L *HI* (08/11/23:18 PM) Alb [3.5-5.2 g/dL] 4.3 g/dL (08/11/23:18 PM) Alk Phos [35-115 unit/L] 128 unit/L 1 *HI* (08/11/2318 PM) ALT [0-33 unit/L] 23 unit/L (08/11/23 12:18 PM) AST [0-32 unit/L] 35 unit/L *HI* (08/11/2318 PM) BUN [6-23 mg/dL] 23 mg/dL (08/11/23:18 PM) Ca [8.4-10.2 mg/dL] 9.1 mg/dL (08/11/23 PM) Cl- [98-107 mmol/L] 96 mmol/L *LOW* (08/11/23 PM) HCO3 [22-29 mmol/L] 22 mmol/L (08/11/23 PM) Cret [0.60-1.00 mg/dL] 1.03 mg/dL *HI* (08/11/23 PM) Glu [74-109 mg/dL] 155 mg/dL 2 *HI* (08/11/23 PM) Hct [35-44 %] 36.3 % (08/11/23 PM) Hgb [11.7-15.0 g/dL] 12.1 g/dL (08/11/23 PM) IgM [40-230 mg/dL] 417 mg/dL *HI* (08/11/23 PM) K [3.5-5.1 mmol/L] 3.9 mmol/L (08/11/23 PM) MCH [28-33 pg] 30.3 pg (08/11/23 PM) MCHC [32-36 g/dL] 33.3 g/dL (08/11/23 PM) MCV [81-96 fL] 91.0 fL (08/11/23 PM) Na [136-145 mmol/L] 133 mmol/L *LOW* (08/11/23 PM) Plts [150-350 K/uL] 118 K/uL *LOW* (08/11/23 PM) RBC [3.90-5.00 M/uL] 3.99 M/uL (08/11/23 PM) T Bili [0.0-1.2 mg/dL] 0.5 mg/dL (08/11/23 PM) Prot [6.4-8.3 g/dL] 7.3 g/dL (08/11/23 PM) WBC [4.0-10.4 K/uL] 5.68 K/uL (08/11/23 12:18 PM) 1Result Comment: Low levels of ALKP may indicate a deficiency in zinc, magnesium, or malnutritionbutcan also be an indicator of a rare genetic disease hypophosphatasia (HPP). 2Result Comment: ADA recommendation for FASTING Serum/Plasma Glucose: Normal: 70-100 mg/dL Prediabetes: 100-125 mg/dL Diabetes: 126 mg/dL or higher Vital Signs Most recent to oldest [Reference Range]: 1 Height 162.9 cm (08/11/23 1:37 PM) Patient Weight 56.5 kg (08/11/23 1:37 PM) Body Mass Index 21.29 kg/m2 (08/11/23 1:37 PM) Temperature [36.5-37.9 DegC] 36.8 DegC (08/11/23 1:37 PM) Heart Rate 79 bpm (08/11/23 1:37 PM) Respiratory Rate 12 br/min (08/11/23 1:37 PM) Blood Pressure 153/80mmHg (08/11/23 1:37 PM) Cuff Pulse Pressure 73 mmHg (08/11/23 1:37 PM) BP Location # 1 Left Arm (08/11/23 1:37 PM) Social History Social History Type Response Tobacco Former smoker, Quit 1984 Smoking Status Never smoked cigaret mari Sex Female Patient Care team information Care Team Personnel Name: MD Geno, Quinn Kc Position: Physician - Rheumatology Member Role: Lifetime Relationship Address: Address: [address] [place] [id number] Name: MARGARET Ann Erin Leigh Position: Referring DIRECT Member Role: Primary Care Provider Address: Address: [facility] [address] [facility] [address] [place] [address] [place] Care Team Related Persons Name: MORENO NGUYEN Address: home [address] [place] [address] [facility] Sanders [phone]
[2023-08-17] MEDS: ACETAMINOPHEN 500 MG TAB PO SCH ×2 (07:28→14:55)
[2023-08-17] MEDS: FAMOTIDINE 20 MG TAB PO SCH (07:29)
[2023-08-17] MEDS: CeleBREX 200 MG CAP PO SCH (07:29)
[2023-08-17] MEDS: METOCLOPRAMIDE HCL 10 MG TABLET PO SCH (07:29)
[2023-08-17] MEDS: GABAPENTIN 300 MG CAP PO SCH (07:30)
[2023-08-17] MEDS: LR 500ML BOLUS, THEN 15ML/HR IV SCH (07:40)
[2023-08-17] MEDS: LR 60ML/HR IV SCH (07:40)
[2023-08-17] MEDS: dexAMETHasone**PF** 10 MG/ML VIAL IV SCH (07:40)
[2023-08-17] MEDS ORDERED: ONDANSETRON INJ 2 MG/ML 2 ML VIAL ONE (07:49)
[2023-08-17] MEDS ORDERED: MIDAZOLAM HCL 1 MG/ML 2ML VIAL ONE (07:49)
[2023-08-17] MEDS ORDERED: LIDOCAINE 2% 2 ML VIAL/AMP(20MG/ML) INFIL ONE (07:49)
[2023-08-17] MEDS ORDERED: PROPOFOL IV EMULSION 10 MG/ML 20 ML VIAL IV ONE (07:49)
[2023-08-17] MEDS ORDERED: fentaNYL citrate PF 100 MCG/2 ML VIAL ONE (07:49)
[2023-08-17] MEDS ORDERED: DEXAMETHASONE SOD INJ 4 MG/ML VIAL ONE (07:50)
--- NOTE | 2023-08-17 08:40 | History & Physical Bridge Note ---
Date of Service August 17, 2023 History & Physical Bridge Note I have examined the patient, reviewed the History & Physical and in the interval since the performance of the History & Physical I have noted the following changes of clinical significance: no changes noted
[2023-08-17] MEDS ORDERED: ROPIVACAINE 0.5% 5 MG/ML 30 ML VIAL ONE (08:57)
[2023-08-17] MEDS: TRANEXAMIC ACID 1,000 MG **IV Pre-op IV SCH (09:08)
[2023-08-17] MEDS: ceFAZolin 2000MG 2,000 MG/15 ML SYR IV SCH ×2 (09:34→17:07)
[2023-08-17] MEDS ORDERED: ATROPINE SULFATE 0.1 MG/ML 10ML SYR IV PRN (09:36)
[2023-08-17] MEDS ORDERED: ePHEDrine sulfate 50 MG/ML AMP IV PRN (09:36)
[2023-08-17] MEDS: ORTHO JOINT ANESTHETIC ONE (10:11)
[2023-08-17] MEDS: TRANEXAMIC ACID 1,000 MG **IV Intra-op IV SCH (10:50)
[2023-08-17] MEDS: ROPIV 0.5% 246mg, Ketorolac 30mg, EPINEPHrine 0.5mg in NSS INFIL SCH (10:52)
[2023-08-17] MEDS ORDERED: KETOROLAC 30 MG/ML VIAL ONE (10:52)
--- NOTE | 2023-08-17 10:59 | Post Operative Brief Note ---
Immediate Post Op Note v1 Date of Surgery August 17, 2023 Pre & Post Diagnosis Operation Date: 08/17/23 09:05 Pre-Op Diagnosis: Arthritis of right hip Post-Op Diagnosis: Arthritis of right hip I identified the patient and participated in the time-out.: Yes Procedure Operation Date: 08/17/23 09:05 Actual Procedures p Right Total Hip Arthroplasty Anterior Approach(Right) - Best Knapp MD Surgeon Best Knapp MD Operations Support Analyst Darian Elizalde PADarinC Estimated Blood Loss 50 Findings Consistent with Post-Op Diagnosis
--- NOTE | 2023-08-17 11:10 | Operative Report ---
Post Operative Report Pre & Post Diagnosis Operation Date: 08/17/23 09:05 Pre-Op Diagnosis: Arthritis of right hip Post-Op Diagnosis: Arthritis of right hip I identified the patient and participated in the time-out.: Yes Procedure Operation Date: 08/17/23 09:05 Actual Procedures p Right Total Hip Arthroplasty Anterior Approach(Right) - Best Knapp MD Surgeon Best Knapp MD Service Agent Darian Elizalde PA-C Estimated Blood Loss 50 Findings Consistent with Post-Op Diagnosis severe degenerative changes with a fairly large inferior acetabular osteophyte patient's skin quality was fair Specimens femoral head and bone fragments as well as labral and capsular tissue Complications none Indications components used: [employer] Polar cemented hip system: Acetabulum size 50 with 25 mm dome screw and Oreo Oxinium liner. Femur size 3 lateral offset with 0 neck length 28 mm Oxinium inner dual mobility head Description of Procedure following satisfactory spinal anesthesia the patient was supine on the operating table. The right leg was placed in traction and device in the left leg in the well-leg patel. Positioning was confirmed with fluoroscopy. The leg was then prepared with ChloraPrep and draped sterilely. A surgical timeout was performed. An anterior approach was performed in the interval between the sartorius and tensor muscles. Numerous small bleeding points were coagulated. The circumflex femoral vessels were identified and coagulated. An anterior capsulotomy was performed exposing the arthritic femoral neck and head. Fluoroscopy was used to confirm femoral neck resection level which was completed and the arthritic femoral head was removed. The acetabular self-retaining retractor was placed. Acetabular preparation was completed with reaming under direct vision and a 50 shell was impacted into a healthy bed in a position of 35 to 40 degrees of abduction and 25 degrees of anteversion confirmed with fluoroscopy. A dome screw was placed followed by the Oreo liner. A large inferior osteophyte was removed. Local anesthetic was placed and the wound was irrigated. The femur was placed into a position of external rotation extension and adduction. The femoral canal was identified and was prepared up to the size 3. A trial reduction with a lateralized femoral neck and a 0 neck length femoral head was performed. Fluoroscopy showed good fit and fill of the proximal canal, very good orientation of the components, and mandaen of leg length and offset at the level of the lesser trochanter. The hip was dislocated. The trial components removed. A cement restriction plug was placed. Third-generation cement technique was then used a curette clean and dry the canal. Vacuum mixed Jd Z be cement was used to cement the final stem head construct of the same size in place. When the cemented hardened the hip was reduced with fluoroscopy showing similar findings and very good cement technique. The wound was irrigated with 500 cc of experience irrigation. The tensor fascia was closed with a running suture of 0 strata fix as well as the deeper subcutaneous fat layers. The most superficial layer was closed with surgical lana. A- pressure wound dressing was applied. The patient was returned to her bed in stable condition. Note: Darian RAHMAN was present and assisted throughout due to the complicated nature of this case. He help with preparation and set up an biology research assistant throughout. He assisted with hemostasis and exposure throughout the procedure. He also closed the fascial subcutaneous and skin layers and applied the postop dressing. I attest to the content of the Intraoperative Record and any orders documented therein. Any exceptions are noted below.
--- NOTE | 2023-08-17 11:29 | Fluoroscopy Report ---
FL hip RT 1V CLINICAL HISTORY: RT ANTERIOR PROSPER COMPARISON STUDY: Right hip radiographs August 17, 2020. FLUOROSCOPY TIME: 13 seconds. Ka, r: 1.32 mGy FLUOROSCOPIC IMAGES: 1 FINDINGS: Fluoroscopy was provided during total anterior right hip arthroplasty. Alignment is anatomi c. There is no fracture. Hardware is intact. Distal most aspect of the femoral component was not imag ed on this exam. IMPRESSION: Fluoroscopy provided during anterior total right hip arthroplasty. ACT 112: Negative or not required by law. Electronically signed by: Gamal Hayes M.D. 08/17/2023 11:28 AM
--- NOTE | 2023-08-17 11:57 | Anesthesiology Progress Note ---
Date of Service August 17, 2023 Anesthesia Post Procedure Vital Signs Vital Signs: Temp Pulse Pulse Resp BP Pulse Ox O2 Del Method 08/17/23 11:40 36.4 C L 85 20 128/67 95 Room Air 08/17/23 11:30 76 17 130/61 100 Oxymask 08/17/23 11:20 87 18 119/63 100 Oxymask 08/17/23 11:12 36.8 C 84 14 117/63 97 Oxymask 08/17/23 07:12 36.7 C 81 20 144/73 H 96 Room Air O2 Flow Rate 08/17/23 11:40 08/17/23 11:30 2 08/17/23 11:20 4 08/17/23 11:12 7 08/17/23 07:12 Pain Intensity Right Hip: Pain Intensity: 0 Transfer of Care Handoff Completed per policy Notes Mental Status: alert / awake / arousable Patient Amnestic to Procedure: Yes Nausea / Vomiting: adequately controlled Pain: adequately controlled Airway Patency, RR, SpO2: stable & adequate BP & HR: stable & adequate Hydration State: stable & adequate Anesthetic Complications: no major complications apparent
[2023-08-17] MEDS ORDERED: MAGNESIUM HYDROXIDE SUSP 30 ML UDC PO PRN (12:37)
[2023-08-17] MEDS ORDERED: diazePAM 5 MG TABLET PO PRN (12:37)
[2023-08-17] MEDS ORDERED: ONDANSETRON INJ 2 MG/ML 2 ML VIAL IV PRN (12:37)
[2023-08-17] MEDS ORDERED: bisacodyL 10 MG SUPP PR PRN (12:37)
[2023-08-17] MEDS ORDERED: NALOXONE HCL 0.4 MG/1 ML VIAL/CARP IV PRN (12:37)
[2023-08-17] MEDS ORDERED: METOCLOPRAMIDE HCL INJ 5 MG/ML 2 ML VIAL IV PRN (12:37)
[2023-08-17] MEDS: SODIUM CHLORIDE 0.9% 1,000 ML IV SCH (12:59)
[2023-08-17] MEDS: oxyCODONE HCL IR 5 MG TAB (IMMEDIATE RELEASE) PO PRN (18:24)
[2023-08-17] MEDS: DOCUSATE SODIUM 100 MG CAP PO SCH (20:04)
[2023-08-17] MEDS: SENNA 8.6 MG TAB PO SCH (20:04)
[2023-08-17] MEDS: ASPIRIN 81 MG ECTAB PO SCH (20:05)
[2023-08-17] MEDS: VERAPAMIL HCL 180 MG TABCR PO SCH (20:05)
[2023-08-17] MEDS: LORazepam 1 MG TAB PO SCH (22:00)
[2023-08-18 07:17] LABS: Basophils # (auto) 0.02 K/uL (0.00-0.20); Basophils % (auto) 0.1 %; Hematocrit (blood only) 28.8 % (37.0-47.0); Hemoglobin 9.6 g/dl (12.0-16.0); Immature Granulocytes # (auto) 0.07 K/uL (0.01-0.20); Immature Granulocytes % (auto) 0.5 %; Lymphocytes # (auto) 1.01 K/uL (1.20-3.40); Lymphocytes % (auto) 7.2 %; Mean Corpuscular Hemoglobin 30.6 pg (25.0-34.0); Mean Corpuscular Hgb Conc 33.3 g/dL (32.0-36.0); Mean Corpuscular Volume 91.7 fL (80.0-100.0); Mean Platelet Volume 10.4 fL (9.4-12.4); Monocytes # (auto) 1.32 K/uL (0.11-0.59); Monocytes % (auto) 9.4 %; Neutrophils # (auto) 11.63 K/uL (1.40-6.50); Neutrophils % (auto) 82.8 %; Platelet Count 93 K/uL (130-400); RDW Coefficient of Variation 13.3 % (11.5-14.5); RDW Standard Deviation 44.9 fL (36.4-46.3); Red Blood Count 3.14 M/uL (4.20-5.40); Toxic Vacuolation 1+; White Blood Count 14.05 K/ul (4.8-10.8)
--- NOTE | 2023-08-18 07:28 | Orthopedic Progress Note ---
Date of Service August 18, 2023 Assessment & Plan (1) S/P total hip arthroplasty: Plan: Patient is doing extremely well. In fact she is up and walking without even assistive device. Today we did review the importance of hip precautions and to use her walker. She will be evaluated by PT. But her labs are stable her incision is benign and she should be cleared for discharge this morning. We did review her medication protocol again reviewed hip precautions. She should be seen by [facility] and within 48 hours. She will follow-up in the office in 2 weeks. Admission and Anticipated Discharge Date Admission Date: August 17, 2023 Subjective chief complaint: Postoperative day #1 right total hip replacement Patient is awake and ambulatory and offers no complaints at all. She is actually been ambulating without assistance and without the use of a walker. Again she voices no pain or other needs or complaints at this time. Physical Exam Physical Exam: Patient was first seen walking in the room without any assistive device Right hip dressing has a little bit of spotting but is essentially clean and dry her thigh and calf are soft and nontender. Her hip is located. She is neurologically and vascularly intact. Results & Data Vital Signs (Past 12 Hours) Vital Signs Temp Pulse Resp BP Pulse Ox O2 Del Method 08/18/23 04:39 36.5 C 70 15 166/84 H 94 Room Air 08/17/23 23:17 36.6 C 77 16 165/84 H 94 Room Air
[2023-08-18 08:15] LABS: BUN Creatinine Ratio 34.1 (10-20); Creatinine Clr Calc Pharmacy 43.3 ml/min; Est GFR (African American) 70.9 ml/min; Est GFR (Non-African American) 61.2 ml/min; Potassium 4.4 mmol/L (3.5-5.1)
[2023-08-18] MEDS: NIFEdipine EXTENDED REL 30 MG TABCR PO SCH (08:32)
[2023-08-18] MEDS: MULTIVITAMIN TAB PO SCH (08:33)
== END 2023-08-18 11:06 | disposition home health service (06) ==
LOC: 3E 06:53 → ASU 06:53